=== PATIENT | female | born 1980 | race African-American/Black ===

== ENCOUNTER 2016-10-10 16:43 | Outpatient (CLI) | payer BC, MEDICAID ==
--- NOTE | 2016-10-10 17:27 | Non Stress Test Report ---
Non Stress Test Datetime Report Generated by CPN: 10/10/2016 17:26 DEMOGRAPHIC EGA NST: 33.0 INDICATION Indication for Study: Chronic Hypertension MONITORING Monitor Explained: Monitor Explained; Test Explained; Patient Verbalized Understanding Time on Monitor: 10/10/2016 16:54 Time off Monitor: 10/10/2016 17:16 NST Duration: 22 NST INTERVENTIONS NST Interventions: PO Hydration Physician Notified NST: C. Saucedo CNM BABY A: [id number] BABY A Movement : Present Contraction Frequency : 0 FHR Baseline : 140 Accelerations : 15X15 Decelerations : None Variability : Moderate 6-25bpm NST Review: Meets Criteria for Reactive NST NST Review and Verified By : PHUC Tyler Results: Reactive NST REPORT Report Trigger: Send Report
== END 2016-10-10 17:18 | disposition home or self-care (01) ==
LOC: LC 16:43
PROVIDERS: ATTEND Obstetrics & Gynecology
PROC: 4A1HXCZ Monitoring of Products of Conception, Cardiac Rate, External Approach (ICD-10-PCS; principal; 2016-10-10)
DX: Z34.93 Encounter for supervision of normal pregnancy, unspecified, third trimester (principal); Z3A.33 33 weeks gestation of pregnancy
CPT/HCPCS: 59025

== ENCOUNTER 2016-10-17 16:16 | Outpatient (CLI) | payer BC, MEDICAID ==
--- NOTE | 2016-10-17 16:53 | Non Stress Test Report ---
Non Stress Test Datetime Report Generated by CPN: 10/17/2016 16:53 DEMOGRAPHIC EGA NST: 34.0 INDICATION Indication for Study: Ordered by Provider Indication for Study (NST) Other: repeat MONITORING Monitor Explained: Monitor Explained; Test Explained; Patient Verbalized Understanding Time on Monitor: 10/17/2016 16:28 Time off Monitor: 10/17/2016 16:49 NST Duration: 21 NST INTERVENTIONS NST Interventions: PO Hydration Physician Notified NST: Dr. Astudillo BABY A: [id number] BABY A Movement : Present Contraction Frequency : none FHR Baseline : 140 Accelerations : 15X15 Decelerations : None Variability : Moderate 6-25bpm NST Review: Meets Criteria for Reactive NST NST Review and Verified By : PHUC Tyler Results: Reactive NST REPORT Report Trigger: Send Report
== END 2016-10-17 16:51 | disposition home or self-care (01) ==
LOC: LC 16:16
PROVIDERS: ATTEND Obstetrics & Gynecology
PROC: 4A1HXCZ Monitoring of Products of Conception, Cardiac Rate, External Approach (ICD-10-PCS; principal; 2016-10-17)
DX: O09.523 Supervision of elderly multigravida, third trimester (principal); Z3A.34 34 weeks gestation of pregnancy
CPT/HCPCS: 59025

== ENCOUNTER 2016-11-16 05:08 | Outpatient (CLI) | payer BC, MEDICAID ==
[2016-11-16] MEDS ORDERED: LABETALOL HCL 200 MG TABLET PO ONE (05:55)
[2016-11-16] MEDS ORDERED: LABETALOL HCL 200 MG TABLET ONE (05:58)
[2016-11-16 06:17] LABS: APPEARANCE,URINE CLEAR; BILIRUBIN,URINE NEGATIVE (NEGATIVE); GLUCOSE, URINE NEGATIVE (NEGATIVE); KETONES,URINE NEGATIVE (NEGATIVE); LEUKOCYTE ESTERASE,URINE NEGATIVE (NEGATIVE); NITRITE,URINE NEGATIVE (NEGATIVE); PROTEIN,URINE NEGATIVE (NEGATIVE); URINE SPECIFIC GRAVITY 1.011; UROBILINOGEN,URINE NEGATIVE mg/dL (<2.0)
[2016-11-16 06:38] LABS: URINE BARBITURATES SCREEN NEGATIVE; URINE METHADONE SCREEN NEGATIVE; URINE OPIATES LOW NEGATIVE; URINE PHENCYCLIDINE SCREEN NEGATIVE
[2016-11-16 07:09] LABS: ABSOLUTE EOSINOPHILS # (AUTO) 0.1 10^3/uL (0.0-0.6); ABSOLUTE LYMPHOCYTES (AUTO) 0.4 10^3/uL (0.5-4.7); ABSOLUTE MONOCYTES (AUTO) 0.5 10^3/uL (0.1-1.4); ABSOLUTE NEUT (AUTO) 6.7 10^3/uL (1.7-8.2); BASOPHILS % (AUTO) 0.4 % (0-2); EOSINOPHILS % (AUTO) 0.9 % (0-6); HEMATOCRIT 33.5 % (36.0-47.0); HEMOGLOBIN 11.1 g/dL (12.0-15.5); HGB HCT DIFFERENCE -0.2; LYMPHOCYTES % (AUTO) 5.5 % (13-45); MEAN CORPUSCULAR HEMOGLOBIN 26.5 pg (27.0-33.4); MEAN CORPUSCULAR HGB CONC 33.2 g/dL (32.0-36.0); MEAN CORPUSCULAR VOLUME 80 fl (80-97); MONOCYTES % (AUTO) 6.6 % (3-13); RED BLOOD COUNT 4.18 10^6/uL (3.72-5.28); RED CELL DISTRIBUTION WIDTH 14.1 % (11.5-14.0); SEGMENTED NEUTROPHILS % (AUTO) 86.6 % (42-78); WHITE BLOOD COUNT 7.7 10^3/uL (4.0-10.5)
[2016-11-16 07:16] LABS: ALANINE AMINOTRANSFERASE 36 U/L (9-52); ALBUMIN 3.7 g/dL (3.5-5.0); ALKALINE PHOSPHATASE 153 U/L (38-126); ANION GAP 10 (5-19); ASPARTATE AMINO TRANSFERASE 29 U/L (14-36); BILIRUBIN,TOTAL 0.6 mg/dL (0.2-1.3); BLOOD UREA NITROGEN 6 mg/dL (7-20); CALCIUM 9.2 mg/dL (8.4-10.2); CARBON DIOXIDE 23 mmol/L (22-30); CHLORIDE 102 mmol/L (98-107); CREATININE RESULT 0.67 mg/dL (0.52-1.25); GLUCOSE 72 mg/dL (75-110); LDH 406 U/L (313-618); POTASSIUM 4.5 mmol/L (3.6-5.0); SODIUM 134.6 mmol/L (137-145); TOTAL PROTEIN 6.8 g/dL (6.3-8.2); URIC ACID 4.8 mg/dL (2.5-7.0)
[2016-11-16] MEDS ORDERED: SIMETHICONE 80 MG TAB.CHEW PO ONE (07:25)
[2016-11-16] MEDS ORDERED: HYDROXYZINE PAMOATE 50 MG CAPSULE PO ONE (07:25)
[2016-11-16] MEDS ORDERED: HYDROXYZINE PAMOATE 50 MG CAPSULE ONE (07:29)
[2016-11-16] MEDS ORDERED: SIMETHICONE 80 MG TAB.CHEW ONE (07:29)
--- NOTE | 2016-11-16 10:46 | L&D Discharge Summary ---
OB Discharge Summary Datetime Report Generated by CPN: 11/16/2016 10:45 DISCHARGE DIAGNOSIS Diagnosis/Symptoms: False Labor Diagnoses/Symptoms Other: Reactive NST Gestation: 38.1 Number of Babies in Womb: 1 Parity: 2 DIET/ACTIVITY/RESTRICTIONS Diet: Regular Activity: Normal Activity TEACHING/INSTRUCTIONS/REFERRALS Instructions Given To: pt Instructions Understood: Patient Verbalized Understanding; Support Person Verbalized Understanding Referrals: None Educational Materials- Other: kick counts DISCHARGE INFORMATION Discharged AMA: No Discharge Date/Time: 11/16/2016 07:43 Discharged To: Home Discharge Provider Name: Paco Accompanied By: Discharge Method: Ambulatory Condition: Stable FOLLOW UP INFORMATION Follow Up With: [facility] Follow Up On: Tomorrow Follow Up Phone Number: [facility] - Comments: Pt ambulated off unit in stable condition with Mcgraws pitcher in hand. Instructed to drink 4-6 pitchers daily and to follow up at next appointment as scheduled. PT informed on signs and symptoms on when to return to hospital. No questions or concerns expressed by pt or SO at this time. GENERAL INSTR-CALL PROVIDER IF: Contractions: Regular painful contractions every 5 minutes or less for one hour. Time your contractions from the beginning of one to the beginning of the next Gush of Fluid/Blood: Gush of fluid or blood from your vagina (it is normal to have spotting after vaginal exam or intercourse) Decreased Movement: Your baby is not moving as much as usual- 4 movements in 1 hour after drinking and resting on side
--- NOTE | 2016-11-16 10:46 | L&D General Admission ---
General Admit Datetime Report Generated by CPN: 11/16/2016 10:45 INFORMATION Patient Age: 36 (10/10/2016 16:43:QS system process) EDC: 11/28/2016 00:00 (10/10/2016 16:48:Lauren Lopez RN) : 4 (10/10/2016 16:48:Lauren Lopez RN) Para: 2 (11/16/2016 07:39:Samanta Padron RN) Para: 2 (10/17/2016 16:43:Ness Valdez RN) Para: 2 (10/10/2016 17:20:Lauren Lopez RN) Para: 2 (10/10/2016 16:48:Lauren Lopez RN) Term: 2 (10/10/2016 16:48:Ness Valdez RN) : 0 (10/10/2016 16:48:Ness Valdez RN) Spontaneous Abortions: 0 (10/10/2016 16:48:Ness Valdez RN) Induced Abortions: 0 (10/10/2016 16:48:Ness Valdez RN) Livin (10/10/2016 16:48:Ness Valdez RN) Cesareans: 0 (10/10/2016 16:48:Ness Valdez RN) VBACs: 0 (10/10/2016 16:48:Ness Valdez RN) Ectopic: 0 (10/10/2016 16:48:Ness Valdez RN) Multiple Births: 0 (10/10/2016 16:48:Ness Valdez RN) Baby, Number in Womb: 1 (11/16/2016 07:39:Samanta Padron RN) Baby, Number in Womb: 1 (10/17/2016 16:43:Ness Valdez RN) Baby, Number in Womb: 1 (10/10/2016 17:20:Lauren Lopez RN) CARE Primary Special Education Director: [facility] (10/10/2016 16:48:Lauren Lopez RN) Height (in): 62 (11/16/2016 05:27:QS system process) Height (in): 62 (10/17/2016 17:02:QS system process) Height (in): 62 (10/10/2016 17:13:QS system process) Height (in): 62 (10/10/2016 17:00:QS system process) ALLERGIES Medication Allergy: No (10/10/2016 16:48:Ness Valdez RN) Medication Allergies: No Known Allergies (11/16/2016) (11/16/2016 05:27:QS system process) Medication Allergies: No Known Allergies (04/23/2015) (10/10/2016 16:43:QS system process) Latex Allergy: No Latex Allergies (10/10/2016 16:48:Ness Valdez RN) Food Allergies: denies (10/10/2016 16:48:Karla Treviño RN) Environmental Allergies: denies (10/10/2016 16:48:Karla Treviño RN) COMMUNICATION Primary Language: Northern Irish (10/10/2016 16:48:Ness Valdez RN) Medical Tx Preferred Language: Northern Irish (10/10/2016 16:48:Ness Valdez RN) Northern Irish Communication Ability: Speaks Northern Irish; Reads Northern Irish (10/10/2016 16:48:Karla Treviño RN) Communication Barrier(s): None (10/10/2016 16:48:Karla Treviño RN) DEMOGRAPHICS Address: [address] [place] [address] (10/10/2016 16:43:QS system process) Zipcode: [address] (10/10/2016 16:43:QS system process) Home (10/10/2016 16:43:QS system process) SSN: [id number] (10/10/2016 16:43:QS system process) Next of Kin Name: BILL MCFADDEN (10/10/2016 16:43:QS system process) Next of Kin (10/10/2016 16:43:QS system process) Next of Kin Relationship: MO (10/10/2016 16:43:QS system process) Date of : 1980 (10/10/2016 16:43:QS system process) Marital Status: (10/10/2016 16:43:QS system process) Sex: Female (10/10/2016 16:43:QS system process) Race: (10/10/2016 16:43:QS system process) Ethnicity: Non- or (10/10/2016 16:43:QS system process) Pentecostalism: Other (10/10/2016 16:43:QS system process) DRUG AND ALCOHOL USE Alcohol: No (10/10/2016 16:48:Ness Valdez RN) Cigarettes: Never Smoker. [id number] (10/10/2016 16:48:Ness Valdez RN) Marijuana: No (10/10/2016 16:48:Ness Valdez RN) Cocaine: No (10/10/2016 16:48:Ness Valdez RN) Other Illicit Drugs: No (10/10/2016 16:48:Ness Valdez RN) VACCINE HISTORY Influenza Vaccine: No (10/10/2016 16:48:Ness Valdez RN) Pneumococcal Vaccine: No (10/10/2016 16:48:Ness Valdez RN) Tetanus Vaccine: Yes (10/10/2016 16:48:Ness Valdez RN) Tetanus Date: 09/11 (10/10/2016 16:48:Ness Valdez RN) Tdap Vaccine: Yes (10/10/2016 16:48:Ness Valdez RN) Tdap Date: 09/11 (10/10/2016 16:48:Ness Valdez RN) Hepatitis B Vaccine: Yes (10/10/2016 16:48:Ness Valdez RN) Kitchen Helper: [facility] (10/10/2016 16:48:Karla Treviño RN) Feeding Preference: Both (10/10/2016 16:48:Karla Treviño RN) Benefit of Breast Feed Discussed: Yes (10/10/2016 16:48:Karla Treviño RN) Circumcision: N/A (10/10/2016 16:48:Karla Treviño RN) Classes Attended: No (10/10/2016 16:48:Karla Treviño RN) Tubal Ligation: No (10/10/2016 16:48:Karla Treviño RN) Tubal Authorization Signed: N/A (10/10/2016 16:48:Karla Treviño RN) Consent: N/A (10/10/2016 16:48:Karla Treviño RN) Consent Signed: N/A (10/10/2016 16:48:Karla Treviño RN) Pain Management Plans: Natural (10/10/2016 16:48:Karla Treviño RN) Plans for Labor and Delivery: None (10/10/2016 16:48:Karla Treviño RN) Support Person: Salty (10/10/2016 16:48:Karla Treviño RN) Support Person Relationship: (10/10/2016 16:48:Karla Treviño RN) Cultural/Spritual Practice: No (10/10/2016 16:48:Karla Treviño RN) Spir/Cult Dietary Needs: No (10/10/2016 16:48:Karla Treviño RN) LIVING SITUATION/DISCHARGE PLAN Living Arrangements: House (10/10/2016 16:48:Karla Treviño RN) Adequate Access to:: Electric; Heat; Refrigeration; Plumbing/Running water; Phone; Transportation (10/10/2016 16:48:Karla Treviño RN) WIC Program: Yes (10/10/2016 16:48:Karla Treviño RN) Discharge Tissue Technologist Person: Salty (10/10/2016 16:48:Karla Treviño RN) Person to Help after Discharge: Salty (10/10/2016 16:48:Karla Treviño RN) Currently Using Commun Resources: Yes (10/10/2016 16:48:Karla Treviño RN) Specify Current Resource Used: medicaid (10/10/2016 16:48:Karla Treviño RN) Outside Agency/Oral Hygienist: No (10/10/2016 16:48:Karla Treviño RN) Car Seat for Discharge: Yes (10/10/2016 16:48:Karla Treviño RN) Adoption Requested: No (10/10/2016 16:48:Karla Treviño RN) Pt Contact w/infant Post : N/A (10/10/2016 16:48:Karla Treviño RN) LABS Blood Type: B Positive (10/10/2016 16:48:Lauren Lopez RN) Antibody Screen: neg (10/10/2016 16:48:Lauren Lopez RN) Hemoglobin: 11.1 L (11/16/2016 06:38:QS system process) Hematocrit: 33.5 L (11/16/2016 06:38:QS system process) MCV: 80 (11/16/2016 06:38:QS system process) Group Beta Strep: positive (10/10/2016 16:48:Karla Treviño RN) Gonorrhea: Negative (10/10/2016 16:48:Ness Valdez RN) Chlamydia: Negative (10/10/2016 16:48:Ness Valdez RN) RPR/VDRL: Nonreactive (10/10/2016 16:48:Lauren Lopez RN) Hepatitis B: Negative (10/10/2016 16:48:Lauren Lopez RN) Rubella: Immune (10/10/2016 16:48:Lauren Lopez RN) OB/PREVIOUS HISTORY Previous Procedures: Ultrasound; NST (10/10/2016 16:48:Karla Treviño RN) Current Procedures: Ultrasound; NST (10/10/2016 16:48:Karla Treviño RN) History of Previous : No (10/10/2016 16:48:Karla Treviño RN) History of Gestational Diabetes: No (10/10/2016 16:48:Karla Treviño RN) History of PIH: No (10/10/2016 16:48:Karla Treviño RN) History of Incompetent Cervix: No (10/10/2016 16:48:Karla Treviño RN) History of Placenta Previa/Abrup: No (10/10/2016 16:48:Karla Treviño RN) History of Macrosomia: No (10/10/2016 16:48:Karla Treviño RN) History of IUGR: No (10/10/2016 16:48:Karla Treviño RN) History of Hemorrhage: No (10/10/2016 16:48:Karla Treviño RN) History of Loss/Stillborn: No (10/10/2016 16:48:Karla Treviño RN) History of : No (10/10/2016 16:48:Karla Treviño RN) History of D (Rh) Sensitization: No (10/10/2016 16:48:Karla Treviño RN) History Recurrent Loss/Stillborn: No (10/10/2016 16:48:Karla Treviño RN) History Depression/PP Depression: No (10/10/2016 16:48:Karla Treviño RN) History of Uterine Anomaly/VIDA: No (10/10/2016 16:48:Karla Treviño RN) History of Infertility: No (10/10/2016 16:48:Karla Treviño RN) History of ART Treatment: No (10/10/2016 16:48:Karla Treviño RN) History of VIDA: No (10/10/2016 16:48:Karla Treviño RN) Comments Obstetrical History: g1-1996, 40 weeks, vaginal delivery, female, 6lb 8 oz, no epidural, @ [facility] g2-2000, 40 weeks, vaginal delivery, male, 6lb 13oz, no epidural, @ [employer] g3-2005, 10 weeks, EAB g4- current , CHTN on labetalol, Obesity, AMA, anemia, uterine fibroid (10/10/2016 16:48:Karla Treviño RN) MEDICAL HISTORY Med Hx Diabetes: No (10/10/2016 16:48:Karla Treviño RN) Med Hx Hypertension: Yes (10/10/2016 16:48:Karla Treviño RN) Med Hx Heart Disease: No (10/10/2016 16:48:Karla Treviño RN) Med Hx Autoimmune Disorder: No (10/10/2016 16:48:Karla Treviño RN) Med Hx Kidney Disease/UTI: No (10/10/2016 16:48:Karla Treviño RN) Med Hx Neurologic/Epilepsy: No (10/10/2016 16:48:Karla Treviño RN) Med Hx Psychiatric Disorders: No (10/10/2016 16:48:Karla Treviño RN) Med Hx Hepatitis/Liver Disease: No (10/10/2016 16:48:Karla Treviño RN) Med Hx Varicosities/Phlebitis: No (10/10/2016 16:48:Karla Treviño RN) Med Hx Thyroid Dysfunction: No (10/10/2016 16:48:Karla Treviño RN) Med Hx Trauma/Violence: No (10/10/2016 16:48:Karla Treviño RN) Med Hx Blood Transfusion: No (10/10/2016 16:48:Karla Treviño RN) Med Hx Pulmonary (Asthma,TB): No (10/10/2016 16:48:Karla Treviño RN) Med Hx Breast: No (10/10/2016 16:48:Karla Treviño RN) Med Hx SENIOR DIRECTOR INSIGHT Surgery: No (10/10/2016 16:48:Karla Treviño RN) Med Hx Hospitalization/Surgery: Yes (10/10/2016 16:48:Karla Treviño RN) Med Hx Anesthetic Complications: No (10/10/2016 16:48:Karla Treviño RN) Med Hx Abnormal Pap Smear: No (10/10/2016 16:48:Karla Treviño RN) Other Medical Diseases: No (10/10/2016 16:48:Karla Treviño RN) Med Hx Significant Family Hx: No (10/10/2016 16:48:Karla Treviño RN) Details of Med/Surg Hx: x2, CHTN on labetalol, anemia, obesity, AMA, uterine fibroid on left side 5.6x4.95x5.1 as of april, tonsilectomy (10/10/2016 16:48:Karla Treviño RN) INFECTIOUS HISTORY Inf Hx Gonorrhea: No (10/10/2016 16:48:Karla Treviño RN) Inf Hx Chlamydia: No (10/10/2016 16:48:aKrla Treviño RN) Inf Hx Syphilis: No (10/10/2016 16:48:Karla Treviño RN) Inf Hx HIV/AIDS: No (10/10/2016 16:48:Karla Treviño RN) Inf Hx Human Papilloma Virus: No (10/10/2016 16:48:Karla Treviño RN) Inf Hx Pt/Partner Genital Herpes: No (10/10/2016 16:48:Karla Treviño RN) Inf Hx Tuberculosis/Exposure: No (10/10/2016 16:48:Karla Treviño RN) Inf Hx Hepatitis B,C: No (10/10/2016 16:48:Karla Treviño RN) Inf Hx Rash or Viral Illness: No (10/10/2016 16:48:Karla Treviño RN) GENETIC HISTORY Gen Hx Age >=35 at [place]: Yes (10/10/2016 16:48:Karla Treviño RN) Gen Hx Thalassemia: No (10/10/2016 16:48:Karla Treviño RN) Gen Hx Congenital Heart Defect: No (10/10/2016 16:48:Karla Treviño RN) Gen Hx Neural Tube Defect: No (10/10/2016 16:48:Karla Treviño RN) Gen Hx Down's Syndrome: No (10/10/2016 16:48:Karla Treviño RN) Gen Hx Navi-Sachs: No (10/10/2016 16:48:Karla Treviño RN) Gen Hx Linda: No (10/10/2016 16:48:Karla Treviño RN) Gen Hx Familial Dysautonomia: No (10/10/2016 16:48:Karla Treviño RN) Gen Hx Sickle Cell Disease/Trait: No (10/10/2016 16:48:Karla Treviño RN) Gen Hx Hemophilia/Blood Disorder: No (10/10/2016 16:48:Karla Treviño RN) Gen Hx Muscular Dystrophy: No (10/10/2016 16:48:Karla Treviño RN) Gen Hx Cystic Fibrosis: No (10/10/2016 16:48:Karla Treviño RN) Gen Hx Huntingtons Chorea: No (10/10/2016 16:48:Karla Treviño RN) Gen Hx Mental Retardation/Autism: No (10/10/2016 16:48:Karla Treviño RN) Gen Hx Tested for Fragile X: No (10/10/2016 16:48:Karla Treviño RN) Gen Hx Other Inher/Chromosomal: No (10/10/2016 16:48:Karla Treviño RN) Gen Hx Maternal Metabolic DO: No (10/10/2016 16:48:Karla Treviño RN) Gen Hx Pt Father or FOB Defect: No (10/10/2016 16:48:Karla Treviño RN) Gen Hx Other Genetic History: No (10/10/2016 16:48:Karla Treviño RN) Gen Hx Drugs/Meds since LMP: No (10/10/2016 16:48:Karla Treviño RN) Gen Hx Medications: vitamins, Labetalol, Iron, Benadryl, Zantac, Tylenol (10/10/2016 16:48:Karla Treviño RN)
--- NOTE | 2016-11-16 10:46 | Antepartum Discharge Summary ---
Antepartum DC Datetime Report Generated by CPN: 11/16/2016 10:45 DIET/ACTIVITY/RESTRICTIONS Diet: Regular (11/16/2016 07:39:Samanta Vito, RN) Activity: Normal Activity (11/16/2016 07:39:Samanta Vito, RN) TEACHING/INSTRUCTIONS/REFERRALS Instructions Given To: pt (11/16/2016 07:39:Samanta Padron, RN) Instructions Understood: Patient Verbalized Understanding; Support Person Verbalized Understanding (11/16/2016 07:39:Samanta Padron RN) Referrals: None (11/16/2016 07:39:Samanta Padron RN) DISCHARGE INFORMATION Discharged AMA: No (11/16/2016 07:39:Samanta Padron RN) Discharge Date/Time: 11/16/2016 07:43 (11/16/2016 07:39:Samanta Padron RN) Discharged To: Home (11/16/2016 07:39:Samanta Padron RN) Discharge Provider Name: Dr Antonio (11/16/2016 07:39:Samanta Padron RN) Accompanied By: (11/16/2016 07:39:Samanta Padron RN) Discharge Method: Ambulatory (11/16/2016 07:39:Samanta Padron RN) Condition: Stable (11/16/2016 07:39:Samanta Padron RN) FOLLOW UP INFORMATION Follow Up With: [facility] (11/16/2016 07:39:Samanta Pardon RN) Follow Up On: Tomorrow (11/16/2016 07:39:Samanta Padron RN) Follow Up Phone Number: [facility] - (11/16/2016 07:39:Samanta Padron RN) GENERAL INSTR-CALL PROVIDER IF: Contractions: Regular painful contractions every 5 minutes or less for one hour. Time your contractions from the beginning of one to the beginning of the next (11/16/2016 07:39:Samanta Padron RN) Gush of Fluid/Blood: Gush of fluid or blood from your vagina (it is normal to have spotting after vaginal exam or intercourse) (11/16/2016 07:39:Samanta Padron RN) Decreased Movement: Your baby is not moving as much as usual- 4 movements in 1 hour after drinking and resting on side (11/16/2016 07:39:Samanta Padron RN)
--- NOTE | 2016-11-16 10:46 | L&D Admission Assessment ---
LD ADM ASMT Datetime Report Generated by CPN: 11/16/2016 10:45 PATIENT ASSESSMENT Assessment Type: Triage (11/16/2016 05:39:Karla Treviño, RN) WEIGHT Weight (lb): 207 (11/16/2016 05:27:QS system process) Weight (kg): 94.1 (11/16/2016 05:27:QS system process) BMI: 37.9 (11/16/2016 05:27:QS system process) PAIN Pain Scale: 4 (11/16/2016 05:36:Karla Treviño RN) Pain Presence: Constant (11/16/2016 05:36:Karla Treviño RN) Pain Type: Pressure (11/16/2016 05:36:Karla Treviño RN) Pain Location: Abdomen; Back (11/16/2016 05:36:Karla Treviño RN) CONTRACTIONS Frequency (min): 2-4 (11/16/2016 07:30:Samanta Padron RN) Frequency (min): x2 (11/16/2016 07:00:Karla Treviño RN) Frequency (min): none (11/16/2016 06:30:Karla Treviño RN) Frequency (min): x1 (11/16/2016 06:00:Karla Treviño RN) Frequency (min): constant (11/16/2016 05:39:Karla Treviño RN) Duration (sec): 40-70 (11/16/2016 07:30:Samanta Padron RN) Duration (sec): 30-40 (11/16/2016 07:00:Karla Treviño RN) Duration (sec): 40 (11/16/2016 06:00:Karla Treviño RN) Quality: Mild (11/16/2016 07:30:Samanta Padron RN) Quality: Mild (11/16/2016 07:00:Karla Treviño RN) Quality: Mild (11/16/2016 06:00:Karla Treviño RN) Pattern: Normal: <= 5 Contractions in 10 Minutes (11/16/2016 07:30:Samanta Padron RN) Resting Tone [place]: Relaxed (11/16/2016 07:30:Samanta Padron RN) Resting Tone [place]: Relaxed (11/16/2016 07:00:Karla Treviño RN) Resting Tone [place]: Relaxed (11/16/2016 06:30:Karla Treviño RN) Resting Tone [place]: Relaxed (11/16/2016 06:00:Karla Treviño RN) VAGINAL EXAM Dilatation (cm): fingertip (11/16/2016 07:00:Karla Treviño RN) Dilatation (cm): fingertip (11/16/2016 05:44:Karla Treviño RN) Effacement (%): thick (11/16/2016 07:00:Karla Treviño RN) Effacement (%): thick (11/16/2016 05:44:Karla Treviño RN) Station: -3 (11/16/2016 07:00:Karla Treviño RN) Station: -3 (11/16/2016 05:44:Karla Treviño RN) NEURO Level of Consciousness: Fully Conscious (11/16/2016 05:39:Karla Treviño RN) DTR's/Clonus: DTRs 1+; No Clonus (11/16/2016 05:39:Karla Treviño RN) Headache: Generalized (11/16/2016 05:39:Karla Treviño RN) Dizziness: No (11/16/2016 05:39:Karla Treviño RN) Blurred Vision: No (11/16/2016 05:39:Karla Treviño RN) Extremity Numbness/Tingling : None (11/16/2016 05:39:Karla Treviño RN) Extremity Movement: Full Range of Motion (11/16/2016 05:39:Karla Treviño RN) CARDIOVASCULAR Heart Rhythm: Regular (Annotations: normal s1s2 on auscultation with no evidence of murmur ) (11/16/2016 05:39:Karla Treviño RN) Nailbeds: [place] (11/16/2016 05:39:Karla Treviño RN) Capillary Refill: Less than 3 Seconds (11/16/2016 05:39:Karla Treviño RN) Lower Extremities Edema: None (11/16/2016 05:39:Karla Treviño RN) Lower Extremities Edema Degree: None (11/16/2016 05:39:Karla Treviño RN) Upper Extremities Edema: None (11/16/2016 05:39:Karla Treviño RN) Upper Extremities Edema Degree: None (11/16/2016 05:39:Karla Treviño RN) Facial Edema: None (11/16/2016 05:39:Karla Treviño RN) Kurt's Sign Left Leg: Negative (11/16/2016 05:39:Karla Treviño RN) Kurt's Sign Right Leg: Negative (11/16/2016 05:39:Karla Treviño RN) DVT RISK ASSESSMENT DVT Risk Age: Age less than 41 years (11/16/2016 05:39:Karla Treviño RN) RESPIRATORY Respiratory Effort: Unlabored; Regular Rhythm; Equal Expansion (11/16/2016 05:39:Karla Treviño RN) Breath Sounds, Left: Clear and Equal (11/16/2016 05:39:Karla Treviño RN) Breath Sounds, Right: Clear and Equal (11/16/2016 05:39:Karla Treviño RN) Cough Productivity: None (11/16/2016 05:39:Karla Treviño RN) GASTROINTESTINAL Nausea/Vomiting: Denies (11/16/2016 05:39:Karla Treviño RN) Bowel Sounds: Normoactive; All Quadrants (11/16/2016 05:39:Karla Treviño RN) RUQ Epigastric Pain: Denies (11/16/2016 05:39:Karla Treviño RN) Bowel Patterns: Soft, Formed Stool (11/16/2016 05:39:Karla Treviño RN) Hemorrhoids: None (11/16/2016 05:39:Karla Treviño RN) Diet Type: Regular diet (11/16/2016 05:39:Karla Treviño RN) Last Meal: 11/15/2016 18:00 (11/16/2016 05:39:Karla Treviño RN) GENITOURINARY Bladder: Nondistended (11/16/2016 05:39:Karla Treviño RN) Frequency of Urination: No (11/16/2016 05:39:Karla Treviño RN) Urination Burning: No (11/16/2016 05:39:Karla Treviño RN) CVA Tenderness: No (11/16/2016 05:39:Karla Treviño RN) Vaginal Bleeding: None (11/16/2016 05:39:Karla Treviño RN) Vaginal Discharge Amount: Small (11/16/2016 05:39:Karla Treviño RN) Vaginal Discharge Color: White (11/16/2016 05:39:Karla Treviño RN) Vaginal Discharge Odor: Non-Odorous (11/16/2016 05:39:Karla Treviño RN) Vaginal Discharge Character: None (11/16/2016 05:39:Karla Treviño RN) INTEGUMENTARY Skin Color: Normal for Race (11/16/2016 05:39:Karla Treviño RN) Skin Temperature: Warm (11/16/2016 05:39:Karla Treviño RN) Skin Moisture: Dry (11/16/2016 05:39:Karla Treviño RN) BRIA SKIN ASSESSMENT Bria Scale Sensory Perception: No Impairment- Responds to verbal commands. Has no sensory deficit which would limit ability to feel or voice pain or discomfort (11/16/2016 05:39:Karla Treviño RN) Bria Scale Moisture: Rarely Moist- Skin is usually dry. Linen only requires changing at routine intervals (11/16/2016 05:39:Karla Treviño RN) Bria Scale Activity: Walks Frequently- Walks outside the room at least twice a day and inside room at least every 2 hours during the day. (11/16/2016 05:39:Karla Treviño RN) Bria Scale Mobility: No Limitations- Makes major and frequent changes in position without assistance (11/16/2016 05:39:Karla Treviño RN) Bria Scale Nutrition: Excellent- Eats most of every meal. Never refuses a meal. Usually eats a total of 4 or more servings of meat and dairy products. Occasionally eats between meals. Does not require supplementation (11/16/2016 05:39:Karla Treviño RN) Bria Scale Friction and Shear: No Apparent Problem- Moves in bed and in chair independently and has sufficient muscle strength to lift up completely during move. Maintains good position in bed or chair at all times (11/16/2016 05:39:Karla Treviño RN) Bria Scale Total: 23 (11/16/2016 05:39:QS system process) Bria Scale Risk: No Risk of Pressure Ulcer Noted at this Time (11/16/2016 05:39:QS system process) SUPPORT Family Support: Significant Other supportive, at bedside frequently (11/16/2016 05:39:Karla Treviño RN) Emotional State: Calm/Relaxed (11/16/2016 05:39:Karla Treviño RN) SAFETY Call [place] Within Reach: Yes (11/16/2016 05:39:Karla Treviño RN) Side Rails Up: Yes (11/16/2016 05:39:Karla Treviño RN) Bed Wheels Locked: Yes (11/16/2016 05:39:Karla Treviño RN) Arm Bands Present: Yes (11/16/2016 05:39:Karla Treviño RN) Isolation: [place] (11/16/2016 05:39:Karla Treviño RN) FALL SCREEN Fall Risk History of Falling: (0) No (11/16/2016 05:39:Karla Treviño RN) Fall Risk Secondary Diagnosis: (0) No (11/16/2016 05:39:Karla Treviño RN) Fall Risk Ambulatory Aid: (0) None/Bedrest/Wheelchair/Nurse Assist (11/16/2016 05:39:Karla Treviño RN) Fall Risk IV Therapy: (0) No (11/16/2016 05:39:Karla Treviño RN) Fall Risk Gait: (0) Normal/Bedrest/Immobile (11/16/2016 05:39:Karla Treviño RN) Fall Risk Mental Status: (0) Oriented to Own Ability (11/16/2016 05:39:Karla Treviño RN) Fall Risk Score: 0 (11/16/2016 05:39:QS system process) Fall Risk Score Definition: No Risk: No action required (11/16/2016 05:39:QS system process) RECENT TRAVEL/INFECTIOUS DISEASE Recent Exp Communicable Disease: around someone who has stomach virus (11/16/2016 05:39:Karla Treviño RN) Cough or Fever: No (11/16/2016 05:39:Karla Treviño RN) Foreign Travel Past 10 Days: No (11/16/2016 05:39:Karla Treviño RN) Open Wounds or Sores: No (11/16/2016 05:39:Karla Treviño RN) Prior Antibiotic Resistance Tx: No (11/16/2016 05:39:Karla Treviño RN) Cultures Obtained: Not Applicable (11/16/2016 05:39:Karla Treviño RN) Isolation Initiated: No (11/16/2016 05:39:Karla Treviño RN) Pt/Family Education: Handwashing Hygiene (11/16/2016 05:39:Karla Treviño RN) BABY A FHR Baseline Rate (bpm) Baby A: 150 (11/16/2016 07:30:Samanta Padron RN) FHR Baseline Rate (bpm) Baby A: 155 (11/16/2016 07:00:Karla Treviño RN) FHR Baseline Rate (bpm) Baby A: 155 (11/16/2016 06:30:Karla Treviño RN) FHR Baseline Rate (bpm) Baby A: 155 (11/16/2016 06:00:Karla Treviño RN) Variability Baby A: Moderate 6-25 bpm (11/16/2016 07:30:Samanta Padron RN) Variability Baby A: Moderate 6-25 bpm (11/16/2016 07:00:Karla Treviño RN) Variability Baby A: Moderate 6-25 bpm (11/16/2016 06:30:Karla Treviño RN) Variability Baby A: Moderate 6-25 bpm (11/16/2016 06:00:Karla Treviño RN) Accelerations Baby A: 15X15 (11/16/2016 07:30:Samanta Padron RN) Accelerations Baby A: 15X15 (11/16/2016 07:00:Karla Treviño RN) Accelerations Baby A: 15X15 (11/16/2016 06:30:Karla Treviño RN) Accelerations Baby A: 15X15 (11/16/2016 06:00:Karla Treviño RN) Decelerations Baby A: None (11/16/2016 07:30:Samanta Padron RN) Decelerations Baby A: None (11/16/2016 07:00:Karla Treviño RN) Decelerations Baby A: None (11/16/2016 06:30:Karla Treviño RN) Decelerations Baby A: None (11/16/2016 06:00:Karla Treviño RN)
--- NOTE | 2016-11-16 10:46 | L&D Flow Sheet ---
LD Flowsheet Datetime Report Generated by CPN: 11/16/2016 10:45 Datetime: 11/16/2016 07:30 Uterine Activity Monitor Mode: External; Palpation (Samanta Padron RN) Frequency (min): 2-4 (Samanta Padron RN) Quality: Mild (Samanta Padron RN) Duration (sec): 40-70 (Samanta Padron RN) Duration Criteria: Less than Two 120 Second Contractions (Samanta Padron RN) Pattern: Normal: <= 5 Contractions in 10 Minutes (Samanta Baidy, RN) Resting Tone (Palpate): Relaxed (Samanta Baidy, RN) Assessment A Monitor Mode: External US (Samanta Baidy, RN) FHR Baseline Rate : 150 (Samanta Baidy, RN) Variability: Moderate 6-25 bpm (Samanta Baidy, RN) Accelerations: 15X15 (Samanta Baidy, RN) Decelerations: None (Samanta Baidy, RN) Datetime: 11/16/2016 07:27 NBP Sys/[place]awn[place]/Mean (mmHg): 135 (QS system process) : 77 (QS system process) : 101 (QS system process) Pulse: 100 (QS system process) LaborFlag: Labor (QS system process) Datetime: 11/16/2016 07:22 Communication Notification Reason: Status Update; Labor Status; Membrane Status; Pain; Lab/Diagnostic Study (Samanta Padron RN) Communication Comments: Dr Antonio notified of lab reports and orders received for simethicon and vistaril with d/c home. (Samanta Padron RN) Datetime: 11/16/2016 07:18 NBP Sys/[place]/Mean (mmHg): 135 (QS system process) : 80 (QS system process) : 102 (QS system process) Pulse: 101 (QS system process) LaborFlag: Labor (QS system process) Datetime: 11/16/2016 07:09 Monitor Interventions for UA: [place] Adjusted (Samanta Baidy, RN) Datetime: 11/16/2016 07:07 NBP Sys/[place]/Mean (mmHg): 142 (QS system process) : 78 (QS system process) : 104 (QS system process) Pulse: 100 (QS system process) LaborFlag: Labor (QS system process) Datetime: 11/16/2016 07:06 Communication Comments: Report to oncoming shift, care relinquished to RN Baidy. (Karla Kossmann, RN) Datetime: 11/16/2016 07:00 Uterine Activity Monitor Mode: External; Palpation (Karlaovi Olsonann, RN) Frequency (min): x2 (Karla Kossmann, RN) Quality: Mild (Karla Sebsmann, RN) Duration (sec): 30-40 (Karla Kossmashkan, RN) Resting Tone (Palpate): Relaxed (Karla Sebsmann, RN) Assessment A Monitor Mode: External US (Karla Treviño, RN) FHR Baseline Rate : 155 (Karla Treviño, RN) Variability: Moderate 6-25 bpm (Karlaovi Treviño, RN) Accelerations: 15X15 (Karla Treviño, RN) Decelerations: None (Karla Treviño, RN) Vaginal Exam Dilatation (cm): fingertip (Karla Treviño, RN) Effacement (%): thick (Karla Treviño, RN) Station: -3 (Karla Treviño, ) Exam by: PHUC Kamila (Karla Olsonashkan, ) Datetime: 11/16/2016 06:57 NBP Sys/[place]/Mean (mmHg): 146 (QS system process) : 83 (QS system process) : 108 (QS system process) Pulse: 100 (QS system process) LaborFlag: Labor (QS system process) Datetime: 11/16/2016 06:47 NBP Sys/[place]/Mean (mmHg): 146 (QS system process) : 78 (QS system process) : 107 (QS system process) Pulse: 106 (QS system process) LaborFlag: Labor (QS system process) Datetime: 11/16/2016 06:39 I/O Interventions: Up to BR (Karla Kossmann, RN) Datetime: 11/16/2016 06:37 NBP Sys/[place]/Mean (mmHg): 139 (QS system process) : 69 (QS system process) : 98 (QS system process) Pulse: 105 (QS system process) LaborFlag: Labor (QS system process) Datetime: 11/16/2016 06:33 Monitor Interventions for UA: [place] Adjusted (Karla Treviño, RN) Datetime: 11/16/2016 06:30 Uterine Activity Monitor Mode: External; Palpation (Karla Treviño, RN) Frequency (min): none (Karla Treviño, RN) Resting Tone (Palpate): Relaxed (Karla Treviño, RN) Assessment A Monitor Mode: External US (Karla Sebsmann, RN) FHR Baseline Rate : 155 (Karla Kossmann, RN) Variability: Moderate 6-25 bpm (Karla Kossmann, RN) Accelerations: 15X15 (Karla Kossmann, RN) Decelerations: None (Karla Kossmann, RN) Datetime: 11/16/2016 06:27 NBP Sys/[place]/Mean (mmHg): 141 (QS system process) : 74 (QS system process) : 101 (QS system process) Pulse: 101 (QS system process) LaborFlag: Labor (QS system process) Datetime: 11/16/2016 06:18 NBP Sys/[place]/Mean (mmHg): 140 (QS system process) : 67 (QS system process) : 97 (QS system process) Pulse: 102 (QS system process) LaborFlag: Labor (QS system process) Datetime: 11/16/2016 06:08 NBP Sys/[place]/Mean (mmHg): 149 (QS system process) : 73 (QS system process) : 104 (QS system process) Pulse: 101 (QS system process) LaborFlag: Labor (QS system process) Datetime: 11/16/2016 06:02 Medications Magnesium/Antihypertensives: Labetolol PO (mg) @ (Annotations: 200mg po given ) (Karla Treviño, RN) Datetime: 11/16/2016 06:00 Uterine Activity Monitor Mode: External; Palpation (Karla Treviño, ) Frequency (min): x1 (Karla Treviño, PHUC) Quality: Mild (Karla Treviño, PHUC) Duration (sec): 40 (Karla Treviño, PHUC) Resting Tone (Palpate): Relaxed (Karla Treviño, RN) Assessment A Monitor Mode: External US (Karla Treviño, RN) FHR Baseline Rate : 155 (Karla Treviño, RN) Variability: Moderate 6-25 bpm (Karla Sebsmann, RN) Accelerations: 15X15 (Karla Sebsmann, RN) Decelerations: None (Karla Kossmann, RN) Datetime: 11/16/2016 05:58 NBP Sys/[place]/Mean (mmHg): 146 (QS system process) : 105 (QS system process) : 120 (QS system process) Pulse: 110 (QS system process) LaborFlag: Labor (QS system process) Datetime: 11/16/2016 05:55 Monitor Interventions for UA: [place] Adjusted (Karla Treviño, RN) Monitor Interventions for FHR: Ultrasound Adjusted (Karla Treviño, RN) Datetime: 11/16/2016 05:54 Patient Care Patient Position/Activity: Right Lateral (Karlaovi Treviño, RN) Datetime: 11/16/2016 05:52 Communication Comments: Dr. Neilsen at bedside and evaluation performed. Plans to monitor and recheck sve at 0650, perform PIH labs, and give labetalol dose. (Karla Treviño, RN) Datetime: 11/16/2016 05:47 NBP Sys/[place]/Mean (mmHg): 133 (QS system process) : 84 (QS system process) : 103 (QS system process) Pulse: 106 (QS system process) LaborFlag: Labor (QS system process) Datetime: 11/16/2016 05:44 Vaginal Exam Dilatation (cm): fingertip (Karla Treviño RN) Effacement (%): thick (Karla Treviño RN) Station: -3 (Karla Treviño RN) Exam by: PHUC Treviño (Karla Treviño RN) Cervix, Consistency: Moderate (Karla Treviño RN) Cervix, Position: Posterior (Karla Treviño RN) Datetime: 11/16/2016 05:43 NBP Sys/[place]/Mean (mmHg): 134 (QS system process) : 86 (QS system process) : 105 (QS system process) Pulse: 107 (QS system process) LaborFlag: Labor (QS system process) Datetime: 11/16/2016 05:39 Frequency (min): constant (Karla Kamila, RN) Vaginal Bleeding: None (Karla Treviño, RN) Maternal Assessment Level of Consciousness: Fully Conscious (Karla Treviño, RN) DTR's/Clonus: DTRs 1+; No Clonus (Karla Treviño RN) Headache: Generalized (Karla Treviño RN) Breath Sounds, Left: Clear and Equal (Karla Treviño RN) Breath Sounds, Right: Clear and Equal (Karla Treviño RN) Nausea/Vomiting: Denies (Karla Treviño RN) RUQ Epigastric Pain: Denies (Karla Treviño RN) Datetime: 11/16/2016 05:36 Vital Signs Stage of : Labor (Karla Treviño RN) NBP Sys/[place]/Mean (mmHg): 140 (QS system process) : 82 (QS system process) : 106 (QS system process) Pulse: 108 (QS system process) Respirations: 18 (Karla Treviño RN) Temperature (F): 98.8 (Karla Treviño RN) Temperature (C): 37.1 (QS system process) Pain Pain Scale: 4 (Karla Treviño RN) Pain Presence: Constant (Karla Treviño RN) Pain Type: Pressure (DAVID Murdock Pain Location: Abdomen; Back (Karla Treviño RN) Pain Relief Measures: Comfort Measures (DAVID Murdock Pain Coping: Talking Through Contractions; Breathing Through Contractions (Annotations: patient appears to be in obvious pain in position on her side ) (Karla Treviño RN) LaborFlag: Labor (QS system process) Datetime: 11/16/2016 05:33 Patient Care Patient Position/Activity: Left Lateral (Karla Treviño RN)
--- NOTE | 2016-11-16 10:46 | L&D Current Admission ---
Current Admit Datetime Report Generated by CPN: 11/16/2016 10:45 ADMISSION INFORMATION Chief Complaint: constant abdominal and back pain (11/16/2016 05:39:Karla Treviño RN)
== END 2016-11-16 07:43 | disposition home or self-care (01) ==
LOC: LC 05:08
PROVIDERS: ATTEND Specialist
PROC: 4A1HXCZ Monitoring of Products of Conception, Cardiac Rate, External Approach (ICD-10-PCS; principal; 2016-11-16)
DX: O47.1 False labor at or after 37 completed weeks of gestation (principal); O09.523 Supervision of elderly multigravida, third trimester; Z3A.38 38 weeks gestation of pregnancy
CPT/HCPCS: 36415; 80053; 80307; 81005; 83615; 84550; 85025; 86592; 86850; 86900; 86901

== ENCOUNTER → 2016-11-17 | Outpatient (CLI) | payer BC, MEDICAID | LOC: OD 11:32 | PROVIDERS: ATTEND Midwife | DX: G03.9 Meningitis, unspecified (principal) | CPT/HCPCS: 87070; 87880 ==

== ENCOUNTER 2016-11-20 09:30 | Inpatient (IN) | payer BC, MEDICAID ==
--- NOTE | 2016-11-20 10:01 | L&D Flow Sheet ---
LD Flowsheet Datetime Report Generated by CPN: 11/20/2016 10:00 Datetime: 11/20/2016 09:52 NBP Sys/[place]/Mean (mmHg): 150 (QS system process) : 104 (QS system process) : 123 (QS system process) Pulse: 63 (QS system process) LaborFlag: Labor (QS system process) Datetime: 11/20/2016 09:51 NBP Sys/[place]/Mean (mmHg): 164 (QS system process) : 102 (QS system process) : 123 (QS system process) Pulse: 80 (QS system process) LaborFlag: Labor (QS system process)
[2016-11-20] MEDS ORDERED: RINGERS SOLUTION,LACTATED 1,000 ML IV PRN (10:25)
[2016-11-20] MEDS ORDERED: PENICILLIN G POTASSIUM 5,000,000 UNIT in DEXTROSE 5%-WATER 100 ML IV ONE (10:25)
[2016-11-20 10:26] LABS: APPEARANCE,URINE SLIGHTLY-CLOUDY; BILIRUBIN,URINE NEGATIVE (NEGATIVE); GLUCOSE, URINE NEGATIVE (NEGATIVE); KETONES,URINE NEGATIVE (NEGATIVE); LEUKOCYTE ESTERASE,URINE NEGATIVE (NEGATIVE); NITRITE,URINE NEGATIVE (NEGATIVE); PROTEIN,URINE NEGATIVE (NEGATIVE); URINE SPECIFIC GRAVITY 1.018; UROBILINOGEN,URINE NEGATIVE mg/dL (<2.0)
[2016-11-20] MEDS ORDERED: PENICILLIN G-K 5 MILLION UNIT VIAL ONE (10:32)
[2016-11-20 10:43] LABS: URINE BARBITURATES SCREEN NEGATIVE; URINE METHADONE SCREEN NEGATIVE; URINE OPIATES LOW NEGATIVE; URINE PHENCYCLIDINE SCREEN NEGATIVE
[2016-11-20] MEDS ORDERED: ONDANSETRON HCL INJ/PF 4 MG/2 ML SDV ONE (10:48)
[2016-11-20 11:03] LABS: ABSOLUTE EOSINOPHILS # (AUTO) 0.1 10^3/uL (0.0-0.6); ABSOLUTE LYMPHOCYTES (AUTO) 1.5 10^3/uL (0.5-4.7); ABSOLUTE MONOCYTES (AUTO) 0.4 10^3/uL (0.1-1.4); ABSOLUTE NEUT (AUTO) 1.9 10^3/uL (1.7-8.2); BASOPHILS % (AUTO) 0.4 % (0-2); EOSINOPHILS % (AUTO) 2.2 % (0-6); HEMATOCRIT 34.1 % (36.0-47.0); HEMOGLOBIN 11.4 g/dL (12.0-15.5); HGB HCT DIFFERENCE 0.1; LYMPHOCYTES % (AUTO) 39.4 % (13-45); MEAN CORPUSCULAR HEMOGLOBIN 26.7 pg (27.0-33.4); MEAN CORPUSCULAR HGB CONC 33.4 g/dL (32.0-36.0); MEAN CORPUSCULAR VOLUME 80 fl (80-97); RED BLOOD COUNT 4.28 10^6/uL (3.72-5.28); RED CELL DISTRIBUTION WIDTH 14.2 % (11.5-14.0); WHITE BLOOD COUNT 3.9 10^3/uL (4.0-10.5)
[2016-11-20] MEDS ORDERED: FENTANYL CITRATE INJ/PF 100 MCG/2 ML AMPUL ONE (11:13)
[2016-11-20 11:21] LABS: ALANINE AMINOTRANSFERASE 37 U/L (9-52); ALBUMIN 3.3 g/dL (3.5-5.0); ALKALINE PHOSPHATASE 168 U/L (38-126); ANION GAP 11 (5-19); ASPARTATE AMINO TRANSFERASE 24 U/L (14-36); BILIRUBIN,TOTAL 0.5 mg/dL (0.2-1.3); BLOOD UREA NITROGEN 9 mg/dL (7-20); CALCIUM 9.2 mg/dL (8.4-10.2); CARBON DIOXIDE 22 mmol/L (22-30); CHLORIDE 104 mmol/L (98-107); GLUCOSE 79 mg/dL (75-110); LDH 408 U/L (313-618); POTASSIUM 4.5 mmol/L (3.6-5.0); SODIUM 136.7 mmol/L (137-145); TOTAL PROTEIN 6.8 g/dL (6.3-8.2); URIC ACID 5.9 mg/dL (2.5-7.0)
[2016-11-20] MEDS ORDERED: MISOPROSTOL 0.2 MG TABLET ONE (11:54)
[2016-11-20] MEDS ORDERED: LIDOCAINE 1% INJ-PF (10 MG/ML) 30 ML SDV ONE (11:55)
[2016-11-20] MEDS ORDERED: OXYTOCIN/NORMAL SALINE 20 UNIT/1,000 ML RTUINJ ONE (11:55)
--- NOTE | 2016-11-20 12:01 | L&D Flow Sheet ---
LD Flowsheet Datetime Report Generated by CPN: 11/20/2016 12:00 Datetime: 11/20/2016 11:54 Dilatation (cm): 10.0 (Viviana Mojica, RN) Exam by: K Antonio CNM (Vivianayvonne Mojica, RN) Datetime: 11/20/2016 11:53 NBP Sys/Shawna/Mean (mmHg): 167 (QS system process) : 112 (QS system process) : 135 (QS system process) Pulse: 62 (QS system process) LaborFlag: Labor (QS system process) Datetime: 11/20/2016 11:37 NBP Sys/Shawna/Mean (mmHg): 165 (QS system process) : 114 (QS system process) : 135 (QS system process) Pulse: 73 (QS system process) Monitor Mode: External (Kirsten Bellavance, RNC) Frequency (min): 5-7 (Kirsten Bellavance, RNC) Quality: Mild (Kirsten Bellavance, RNC) Duration (sec): 50-70 (Kirsten Bellavance, RNC) Duration Criteria: Less than Two 120 Second Contractions (Kirsten Bellavance, RNC) Pattern: Normal: <= 5 Contractions in 10 Minutes (Kirsten Bellavance, RNC) Resting Tone (Palpate): Relaxed (Kirsten Bellavance, RNC) Monitor Mode: External US (Kirsten Bellavance, RNC) FHR Baseline Rate : 120 (Kirsten Bellavance, RNC) Variability: Moderate 6-25 bpm (Kirsten Bellavance, RNC) Accelerations: 15X15 (Kirsten Bellavance, RNC) Decelerations: None (Kirsten Bellavance, RNC) Pain Assessment Comments: resting with eyes closed (Kirsten Bellavance, RNC) LaborFlag: Labor (QS system process) Datetime: 11/20/2016 11:23 NBP Sys/Shawna/Mean (mmHg): 168 (QS system process) : 100 (QS system process) : 125 (QS system process) Pulse: 66 (QS system process) Respirations: 16 (Kirsten Bellavance, RNC) Pain Scale: 5 (Kirsten Bellavance, RNC) Pain Presence: Intermittent (Kirsten Bellavance, RNC) Pain Type: Cramping (Kirsten Bellavance, RNC) Pain Location: Abdomen (Kirsten Bellavance, RNC) Pain Goal: 2 (Kirsten Bellavance, RNC) Pain Relief Measures: Pain Medication Given (Kirsten Bellavance, RNC) Pain Coping: Breathing Through Contractions (Kirsten Bellavance, RNC) Pain Assessment Comments: fentanyl 100 mcg given (Kirsten Bellavance, RNC) Level of Consciousness: Fully Conscious (Kirsten Bellavance, RNC) DTR's/Clonus: DTRs 2+ (Kirsten Bellavance, RNC) Headache: Denies (Kirsten Bellavance, RNC) Breath Sounds, Left: Clear and Equal (Kirsten Bellavance, RNC) Breath Sounds, Right: Clear and Equal (Kirsten Bellavance, RNC) Nausea/Vomiting: Denies (Kirsten Bellavance, RNC) RUQ Epigastric Pain: Denies (Kirsten Bellavance, RNC) Analgesics/Sedatives: Fentanyl (mcg) @ (Annotations: 100 mcg iv) (Kirsten Bellavance, RNC) LaborFlag: Labor (QS system process) Datetime: 11/20/2016 11:18 NBP Sys/Shawna/Mean (mmHg): 151 (QS system process) : 99 (QS system process) : 117 (QS system process) Pulse: 62 (QS system process) Respirations: 16 (Kirsten Bellavance, RNC) Monitor Mode: External (Kirsten Bellavance, RNC) Frequency (min): 5-7 (Kirsten Bellavance, RNC) Quality: Mild (Kirsten Bellavance, RNC) Duration (sec): 50-70 (Kirsten Bellavance, RNC) Duration Criteria: Less than Two 120 Second Contractions (Kirsten Bellavance, RNC) Pattern: Normal: <= 5 Contractions in 10 Minutes (Kirsten Bellavance, RNC) Resting Tone (Palpate): Relaxed (Kirsten Bellavance, RNC) Monitor Mode: External US (Kirsten Bellavance, RNC) FHR Baseline Rate : 120 (Kirsten Bellavance, RNC) Variability: Moderate 6-25 bpm (Kirsten Bellavance, RNC) Accelerations: 15X15 (Kirsten Bellavance, RNC) Decelerations: None (Kirsten Bellavance, RNC) Dilatation (cm): 6.0 (Kirsten Bellavance, RNC) Effacement (%): 100 (Kirsten Bellavance, RNC) Station: -1 (Kirsten Bellavance, RNC) Exam by: Katharina Bellbrie RNC (Kirsten Bellavance, RNC) Membrane Status: Intact (Kirsten Bellavance, RNC) LaborFlag: Labor (QS system process) Datetime: 11/20/2016 11:00 I/O Interventions: Up to BR (Kirsten Bellavance, RNC) Datetime: 11/20/2016 10:52 NBP Sys/Shawna/Mean (mmHg): 176 (QS system process) : 111 (QS system process) : 137 (QS system process) Pulse: 68 (QS system process) Respirations: 16 (Kirsten Bellavance, RNC) Monitor Mode: External (Kirsten Bellavance, RNC) Frequency (min): 5-7 (Kirsten Bellavance, RNC) Quality: Mild (Kirsten Bellavance, RNC) Duration (sec): 50-70 (Kirsten Bellavance, RNC) Duration Criteria: Less than Two 120 Second Contractions (Kirsten Bellavance, RNC) Pattern: Normal: <= 5 Contractions in 10 Minutes (Kirsten Bellavance, RNC) Resting Tone (Palpate): Relaxed (Kirsten Bellavance, RNC) Monitor Mode: External US (Kirsten Bellavance, RNC) FHR Baseline Rate : 120 (Kirsten Bellavance, RNC) Variability: Moderate 6-25 bpm (Kirsten Bellavance, RNC) Accelerations: 15X15 (Kirsten Bellavance, RNC) Decelerations: None (Kirsten Bellavance, RNC) Antiemetics/Antacids: Zofran IV (mg) @ (Annotations: 4) (Kirsten Bellavance, RNC) LaborFlag: Labor (QS system process) Datetime: 11/20/2016 10:39 NBP Sys/Shawna/Mean (mmHg): 172 (QS system process) : 112 (QS system process) : 135 (QS system process) Pulse: 65 (QS system process) Respirations: 16 (Kirsten Bellavance, RNC) Monitor Mode: External (Kirsten Bellavance, RNC) Frequency (min): 6-7 (Kirsten Bellavance, RNC) Quality: Mild (Kirsten Bellavance, RNC) Duration (sec): 60-80 (Kirsten Bellavance, RNC) Duration Criteria: Less than Two 120 Second Contractions (Kirsten Bellavance, RNC) Pattern: Normal: <= 5 Contractions in 10 Minutes (Kirsten Bellavance, RNC) Resting Tone (Palpate): Relaxed (Kirsten Bellavance, RNC) Monitor Mode: External US (Kirsten Bellavance, RNC) FHR Baseline Rate : 120 (Kirsten Bellavance, RNC) Variability: Moderate 6-25 bpm (Kirsten Bellavance, RNC) Accelerations: 15X15 (Kristen Bellavance, RNC) Decelerations: None (Kirsten Bellavance, RNC) IV/Blood Work: IV Infusing per Order (Kirsten Bellavance, RNC) LaborFlag: Labor (QS system process) Datetime: 11/20/2016 10:23 NBP Sys/Shawna/Mean (mmHg): 157 (QS system process) : 88 (QS system process) : 116 (QS system process) Pulse: 62 (QS system process) Respirations: 18 (Kirsten Bellavance, RNC) Monitor Mode: External (Kirsten Bellavance, RNC) Frequency (min): 6-7 (Kirsten Bellavance, RNC) Quality: Mild (Kirsten Bellavance, RNC) Duration (sec): 60-80 (Kirsten Bellavance, RNC) Duration Criteria: Less than Two 120 Second Contractions (Kirsten Bellavance, RNC) Pattern: Normal: <= 5 Contractions in 10 Minutes (Kirsten Bellavance, RNC) Resting Tone (Palpate): Relaxed (Kirsten Bellavance, RNC) Monitor Mode: External US (Kirsten Bellavance, RNC) FHR Baseline Rate : 120 (Kirsten Bellavance, RNC) Variability: Moderate 6-25 bpm (Kirsten Bellavance, RNC) Accelerations: 15X15 (Kirsten Bellavance, RNC) Decelerations: None (Kirsten Bellavance, RNC) IV/Blood Work: IV Infusing per Order (Kirsten Bellavance, RNC) LaborFlag: Labor (QS system process) Datetime: 11/20/2016 10:07 NBP Sys/Shawna/Mean (mmHg): 139 (QS system process) : 83 (QS system process) : 103 (QS system process) Pulse: 67 (QS system process) Respirations: 18 (Kirsten Bellavance, RNC) Monitor Mode: External (Kirsten Bellavance, RNC) Frequency (min): 6-7 (Kirsten Bellavance, RNC) Quality: Mild (Kirsten Bellavance, RNC) Duration (sec): 50-60 (Kirsten Bellavance, RNC) Duration Criteria: Less than Two 120 Second Contractions (Kirsten Bellavance, RNC) Pattern: Normal: <= 5 Contractions in 10 Minutes (Kirsten Bellavance, RNC) Resting Tone (Palpate): Relaxed (Kirsten Bellavance, RNC) Monitor Mode: External US (Kirsten Bellavance, RNC) FHR Baseline Rate : 120 (Kirsten Bellavance, RNC) Variability: Moderate 6-25 bpm (Kirsten Bellavance, RNC) Accelerations: 15X15 (Kirsten Bellavance, RNC) Decelerations: None (Kirsten Bellavance, RNC) Antibiotics: Penicillin IV (Units) @ (Annotations: 5million units) (Kirsten Bautista, RNC) IV/Blood Work: IV Infusing per Order (Kirsten Bautista, RNC) LaborFlag: Labor (QS system process)
[2016-11-20] MEDS ORDERED: IBUPROFEN 800 MG TABLET ONE (12:18)
[2016-11-20] MEDS ORDERED: ACETAMINOPHEN WITH CODEINE #3 TABLET ONE (13:05)
[2016-11-20] MEDS ORDERED: NIFEDIPINE 30 MG TAB.ER.24 PO ONE (13:45)
--- NOTE | 2016-11-20 14:01 | L&D Flow Sheet ---
LD Flowsheet Datetime Report Generated by CPN: 11/20/2016 14:00 Datetime: 11/20/2016 13:52 NBP Sys/Shawna/Mean (mmHg): 166 (QS system process) : 84 (QS system process) : 119 (QS system process) Pulse: 68 (QS system process) Respirations: 18 (Kirsten Bellavance, RNC) Datetime: 11/20/2016 13:45 Pain Scale: 5 (Kirsten Bellavance, RNC) Datetime: 11/20/2016 13:37 NBP Sys/Shawna/Mean (mmHg): 161 (QS system process) : 98 (QS system process) : 120 (QS system process) Pulse: 59 (QS system process) Datetime: 11/20/2016 13:35 Respirations: 18 (Kirsten Bellavance, RNC) Datetime: 11/20/2016 13:22 NBP Sys/Shawna/Mean (mmHg): 161 (QS system process) : 76 (QS system process) : 108 (QS system process) Pulse: 57 (QS system process) Datetime: 11/20/2016 13:20 Respirations: 20 (Kirsten Bellavance, RNC) Datetime: 11/20/2016 13:10 NBP Sys/Shawna/Mean (mmHg): 167 (QS system process) : 82 (QS system process) : 112 (QS system process) Pulse: 57 (QS system process) Datetime: 11/20/2016 13:00 NBP Sys/Shawna/Mean (mmHg): 175 (QS system process) : 106 (QS system process) : 133 (QS system process) Pulse: 56 (QS system process) Respirations: 18 (Kirsten Bellavance, RNC) Pain Assessment Comments: tylenol #3 x2 tabs (Kirsten Bellavance, RNC) Datetime: 11/20/2016 12:50 Respirations: 20 (Kirsten Bellavance, RNC) Datetime: 11/20/2016 12:38 NBP Sys/Shawna/Mean (mmHg): 164 (QS system process) : 95 (QS system process) : 122 (QS system process) Pulse: 67 (QS system process) Datetime: 11/20/2016 12:25 Respirations: 16 (Kirsten Bellavance, RNC) Datetime: 11/20/2016 12:22 NBP Sys/Shawna/Mean (mmHg): 158 (QS system process) : 75 (QS system process) : 108 (QS system process) Pulse: 67 (QS system process) Datetime: 11/20/2016 12:10 Respirations: 16 (Kirsten Bellavance, RNC) Pain Assessment Comments: crampy motrin 800 mg given (Kirsten Bellavance, RNC) Datetime: 11/20/2016 12:08 Stage of : Recovery (Kirsten Bellavance, RNC) NBP Sys/Shawna/Mean (mmHg): 198 (QS system process) : 96 (QS system process) : 130 (QS system process) Pulse: 86 (QS system process) Datetime: 11/20/2016 12:07 Communication Comments: of viable female infant (Kirsten Tomince, RNC) Datetime: 11/20/2016 12:03 Pushing Position: Pushing with Contractions (Viviana Mojica [facility]) Pushing Progress: Descent with Pushing (Viviana Mojica [facility])
[2016-11-20] MEDS ORDERED: MEASLES,MUMPS&RUBELLA VACC/PF 0.5 ML VIAL SUBCUT PRN (14:11)
[2016-11-20] MEDS ORDERED: DIBUCAINE 1% OINTMENT 28 GM TP PRN (14:11)
[2016-11-20] MEDS ORDERED: DIPH/PERTUSS(ACELL)/TETANUS VAC/PF 0.5 ML SYR (>=10YO) IM PRN (14:11)
[2016-11-20] MEDS ORDERED: BENZOCAINE/MENTHOL AEROSOL SPRAY 56 ML TOP PRN (14:11)
[2016-11-20] MEDS ORDERED: IBUPROFEN 800 MG TABLET PO SCH (14:11)
[2016-11-20] MEDS ORDERED: OXYTOCIN/NORMAL SALINE 1,000 ML IV PRN (14:11)
[2016-11-20] MEDS ORDERED: ACETAMINOPHEN WITH CODEINE #3 TABLET PO PRN (14:11)
[2016-11-20] MEDS ORDERED: ZOLPIDEM TARTRATE 5 MG TABLET PO PRN (14:11)
--- NOTE | 2016-11-20 14:23 | Admission Physical ---
Datetime Report Generated by CPN: 11/20/2016 14:22 CURRENT ADMISSION Chief Complaint: Uterine Contractions Indication for Induction: Not Applicable Admit Plan: Initiate Labor Protocol Admit Plan- Other: CHTN with elevated BPs today, on Labetalol PIH labs with admit labs Sent from [facility] today as direct admit for labor ALLERGIES Medication Allergies: No Medication Allergies: No Known Allergies (11/16/2016) Latex: No Latex Allergies Food Allergies: denies Environmental Allergies: denies OBSTETRICAL HISTORY EDC: 11/28/2016 00:00 : 4 Para: 2 Term: 2 : 0 SAB: 0 IAB: 0 Ectopic: 0 Livin Cesareans: 0 VBACs: 0 Multiple Births: 0 Gestational Diabetes: No Rh Sensitization: No Incompetent Cervix: No VIDA: No Infertility: No ART Treatment: No Uterine Anomaly: No IUGR: No Hx Previous C/S: No Macrosomia: No Hx Loss/Stillborn: No PIH: No Hx : No Placenta Previa/Abruption: No Depression/PP Depression: No PTL/PROM: No Post Hemorrhage: No Current Procedures: Ultrasound; NST Obstetrical History Comments: g1-1996, 40 weeks, vaginal delivery, female, 6lb 8 oz, no epidural, @ [facility] g2-2000, 40 weeks, vaginal delivery, male, 6lb 13oz, no epidural, @ [employer] g3-2004, 10 weeks, EAB g4- current , CHTN on labetalol, Obesity, AMA, anemia, uterine fibroid SEE RECORDS Alcohol: No Marijuana : No Cocaine: No Other Illicit Drugs: No Cigarettes: Never Smoker. [id number] MEDICAL HISTORY Diabetes: No Blood Transfusion: No Pulmonary Disease (Asthma, TB): No Breast Disease: No Hypertension: Yes Molder Hand Surgery: No Heart Disease: No Hosp/Surgery: Yes Autoimmune Disorder: No Anesthetic Complications: No Kidney Disease: No Abnormal Pap Smear: No Neuro/Epilepsy: No Psychiatric Disorders: No Other Medical Diseases: No Hepatitis/Liver Disease: No Significant Family History: No Varicosities/Phlebitis: No Trauma/Violence : No Thyroid Dysfunction: No Medical History Comments: x2, CHTN on labetalol, anemia, obesity, AMA, uterine fibroid on left side [id number] as of april, tonsilectomy INFECTIOUS HISTORY Gonorrhea: No Genital Herpes: No Chlamydia: No Tuberculosis: No Syphilis: No Hepatitis: No HIV/AIDS Exposure: No Rash or Viral Illness: No HPV: No PHYSICAL EXAM General: Normal HEENT: Deferred Neurologic: Normal Thyroid: Deferred Heart: Normal Lungs: Normal Breast: Deferred Back: Deferred Abdomen: Normal Genitourinary Exam: Normal Extremities: Normal DTRs: Deferred Pelvic Type: Adequate Physical Exam Comments: cx 4-5/80/-1 per H.Moe CNM at [facility] Vital Signs: Reviewed FETUS A EGA: 38.6 Monitoring: External US FHR- Baseline: 130 Variability: Moderate 6-25bpm Decelerations: None Presentation: Oblique PLANS FOR LABOR AND DELIVERY Labor and Delivery: None Pain Management: Natural Feeding Preference: Both Benefit of Breast Feed Discussed: Yes Circumcision: N/A INFORMED CONSENT Assignment: Christine Antonio MD Signature: with User ID: Melissa : with User ID: Melissa
[2016-11-20] MEDS ORDERED: PENICILLIN G POTASSIUM 2,500,000 UNIT in DEXTROSE 5%-WATER 50 ML IV SCH (14:26)
[2016-11-20] MEDS: FERROUS SULFATE 325 MG TABLET PO SCH (17:27)
[2016-11-20] MEDS: IBUPROFEN 800 MG TABLET PO SCH (17:28)
[2016-11-20] MEDS: DOCUSATE SODIUM 100 MG CAPSULE PO SCH (17:28)
--- NOTE | 2016-11-20 19:01 | L&D Flow Sheet ---
LD Flowsheet Datetime Report Generated by CPN: 11/20/2016 19:00 Datetime: 11/20/2016 14:07 NBP Sys/Shawna/Mean (mmHg): 155 (QS system process) : 90 (QS system process) : 115 (QS system process) Pulse: 59 (QS system process) Datetime: 11/20/2016 13:52 NBP Sys/Shawna/Mean (mmHg): 166 (QS system process) : 84 (QS system process) : 119 (QS system process) Pulse: 68 (QS system process) Respirations: 18 (Kirsten Bellavance, RNC) Datetime: 11/20/2016 13:45 Pain Scale: 5 (Kirsten Bellavance, RNC) Datetime: 11/20/2016 13:37 NBP Sys/Shawna/Mean (mmHg): 161 (QS system process) : 98 (QS system process) : 120 (QS system process) Pulse: 59 (QS system process) Datetime: 11/20/2016 13:35 Respirations: 18 (Kirsten Bellavance, RNC) Datetime: 11/20/2016 13:22 NBP Sys/Shawna/Mean (mmHg): 161 (QS system process) : 76 (QS system process) : 108 (QS system process) Pulse: 57 (QS system process) Datetime: 11/20/2016 13:20 Respirations: 20 (Kirsten Bellavance, RNC) Datetime: 11/20/2016 13:10 NBP Sys/Shawna/Mean (mmHg): 167 (QS system process) : 82 (QS system process) : 112 (QS system process) Pulse: 57 (QS system process) Datetime: 11/20/2016 13:00 NBP Sys/Shawna/Mean (mmHg): 175 (QS system process) : 106 (QS system process) : 133 (QS system process) Pulse: 56 (QS system process) Respirations: 18 (Kirsten Bellavance, RNC) Pain Assessment Comments: tylenol #3 x2 tabs (Kirsten Bellavance, RNC) Datetime: 11/20/2016 12:50 Respirations: 20 (Kirsten Bellavance, RNC) Datetime: 11/20/2016 12:38 NBP Sys/Shawna/Mean (mmHg): 164 (QS system process) : 95 (QS system process) : 122 (QS system process) Pulse: 67 (QS system process) Datetime: 11/20/2016 12:25 Respirations: 16 (Kirsten Bellavance, RNC) Datetime: 11/20/2016 12:22 NBP Sys/Shawna/Mean (mmHg): 158 (QS system process) : 75 (QS system process) : 108 (QS system process) Pulse: 67 (QS system process) Datetime: 11/20/2016 12:10 Respirations: 16 (Kirsten Bellavance, RNC) Pain Assessment Comments: crampy motrin 800 mg given (Kirsten Bellavance, RNC) Datetime: 11/20/2016 12:08 Stage of : Recovery (Kirsten Bellavance, RNC) NBP Sys/Shawna/Mean (mmHg): 198 (QS system process) : 96 (QS system process) : 130 (QS system process) Pulse: 86 (QS system process) Datetime: 11/20/2016 12:07 Communication Comments: of viable female infant (Kirsten Bellavance, RNC) Datetime: 11/20/2016 12:03 Pushing Position: Pushing with Contractions (Viviana Yunior, RNC) Pushing Progress: Descent with Pushing (Viviana Yunior, RNC) Datetime: 11/20/2016 11:58 Pushing: Coached on Pushing; Urge to Push (Viviana Yunior, [facility]) Pushing Position: Pushing with Contractions (Viviana Yunior, RNC) Pushing Progress: Descent with Pushing (Viviana Yunior, RNC) Preparation for Delivery: Perineal Prep Done; Setup for Delivery (Viviana Yunior, [facility]) Stage 2 Comments: K Paco CNEly at BS, pushing with pt (Viviana Yunior, RNC) Datetime: 11/20/2016 11:54 Dilatation (cm): 10.0 (Viviana Mojica, RNC) Exam by: Kunal Antonio CNM (Viviana Mojica, RNC) Datetime: 11/20/2016 11:53 NBP Sys/Shawna/Mean (mmHg): 167 (QS system process) : 112 (QS system process) : 135 (QS system process) Pulse: 62 (QS system process) Respirations: 18 (Kirsten Bellavance, RNC) Monitor Mode: External (Kirsten Bellavance, RNC) Frequency (min): 4-5 (Kirsten Bellavance, RNC) Quality: Moderate (Kirsten Bellavance, RNC) Duration (sec): 50-80 (Kirsten Bellavance, RNC) Duration Criteria: Less than Two 120 Second Contractions (Kirsten Bellavance, RNC) Pattern: Normal: <= 5 Contractions in 10 Minutes (Kirsten Bellavance, RNC) Resting Tone (Palpate): Relaxed (Kirsten Bellavance, RNC) Monitor Mode: External US (Kirsten Bellavance, RNC) FHR Baseline Rate : 120 (Kirsten Bellavance, RNC) Variability: Moderate 6-25 bpm (Kirsten Bellavance, RNC) Accelerations: 15X15 (Kirsten Bellavance, RNC) Decelerations: None (Kirsten Bellavance, RNC) LaborFlag: Labor (QS system process) Datetime: 11/20/2016 11:37 NBP Sys/Shawna/Mean (mmHg): 165 (QS system process) : 114 (QS system process) : 135 (QS system process) Pulse: 73 (QS system process) Monitor Mode: External (Kirsten Bellavance, RNC) Frequency (min): 5-7 (Kirsten Bellavance, RNC) Quality: Mild (Kirsten Bellavance, RNC) Duration (sec): 50-70 (Kirsten Bellavance, RNC) Duration Criteria: Less than Two 120 Second Contractions (Kirsten Bellavance, RNC) Pattern: Normal: <= 5 Contractions in 10 Minutes (Kirsten Bellavance, RNC) Resting Tone (Palpate): Relaxed (Kirsten Bellavance, RNC) Monitor Mode: External US (Kirsten Bellavance, RNC) FHR Baseline Rate : 120 (Kirsten Bellavance, RNC) Variability: Moderate 6-25 bpm (Kirsten Bellavance, RNC) Accelerations: 15X15 (Kirsten Bellavance, RNC) Decelerations: None (Kirsten Bellavance, RNC) Pain Assessment Comments: resting with eyes closed (Kirsten Bellavance, RNC) LaborFlag: Labor (QS system process) Datetime: 11/20/2016 11:23 NBP Sys/Shawna/Mean (mmHg): 168 (QS system process) : 100 (QS system process) : 125 (QS system process) Pulse: 66 (QS system process) Respirations: 16 (Kirsten Bellavance, RNC) Pain Scale: 5 (Kirsten Bellavance, RNC) Pain Presence: Intermittent (Kirsten Bellavance, RNC) Pain Type: Cramping (Kirsten Bellavance, RNC) Pain Location: Abdomen (Kirsten Bellavance, RNC) Pain Goal: 2 (Kirsten Bellavance, RNC) Pain Relief Measures: Pain Medication Given (Kirsten Bellavance, RNC) Pain Coping: Breathing Through Contractions (Kirsten Bellavance, RNC) Pain Assessment Comments: fentanyl 100 mcg given (Kirsten Bellavance, RNC) Level of Consciousness: Fully Conscious (Kirsten Bellavance, RNC) DTR's/Clonus: DTRs 2+ (Kirsten Bellavance, RNC) Headache: Denies (Kirsten Bellavance, RNC) Breath Sounds, Left: Clear and Equal (Kirsten Bellavance, RNC) Breath Sounds, Right: Clear and Equal (Kirsten Bellavance, RNC) Nausea/Vomiting: Denies (Kirsten Bellavance, RNC) RUQ Epigastric Pain: Denies (Kirsten Bellavance, RNC) Analgesics/Sedatives: Fentanyl (mcg) @ (Annotations: 100 mcg iv) (Kirsten Bellavance, RNC) LaborFlag: Labor (QS system process) Datetime: 11/20/2016 11:18 NBP Sys/Shawna/Mean (mmHg): 151 (QS system process) : 99 (QS system process) : 117 (QS system process) Pulse: 62 (QS system process) Respirations: 16 (Kirsten Bellavance, RNC) Monitor Mode: External (Kirsten Bellavance, RNC) Frequency (min): 5-7 (Kirsten Bellavance, RNC) Quality: Mild (Kirsten Bellavance, RNC) Duration (sec): 50-70 (Kirsten Bellavance, RNC) Duration Criteria: Less than Two 120 Second Contractions (Kirsten Bellavance, RNC) Pattern: Normal: <= 5 Contractions in 10 Minutes (Kirsten Bellavance, RNC) Resting Tone (Palpate): Relaxed (Kirsten Bellavance, RNC) Monitor Mode: External US (Kirsten Bellavance, RNC) FHR Baseline Rate : 120 (Kirsten Bellavance, RNC) Variability: Moderate 6-25 bpm (Kirsten Bellavance, RNC) Accelerations: 15X15 (Kirsten Bellavance, RNC) Decelerations: None (Kirsten Bellavance, RNC) Dilatation (cm): 6.0 (Kirsten Bellavance, RNC) Effacement (%): 100 (Kirsten Bellavance, RNC) Station: -1 (Kirsten Bellavance, RNC) Exam by: Katharina Bautista RNC (Kirsten Bellavance, RNC) Membrane Status: Intact (Kirsten Bellavance, RNC) LaborFlag: Labor (QS system process) Datetime: 11/20/2016 11:00 I/O Interventions: Up to BR (Kirsten Bellavance, RNC) Datetime: 11/20/2016 10:52 NBP Sys/Shawna/Mean (mmHg): 176 (QS system process) : 111 (QS system process) : 137 (QS system process) Pulse: 68 (QS system process) Respirations: 16 (Kirsten Bellavance, RNC) Monitor Mode: External (Kirsten Bellavance, RNC) Frequency (min): 5-7 (Kirsten Bellavance, RNC) Quality: Mild (Kirsten Bellavance, RNC) Duration (sec): 50-70 (Kirsten Bellavance, RNC) Duration Criteria: Less than Two 120 Second Contractions (Kirsten Bellavance, RNC) Pattern: Normal: <= 5 Contractions in 10 Minutes (Kirsten Bellavance, RNC) Resting Tone (Palpate): Relaxed (Kirsten Bellavance, RNC) Monitor Mode: External US (Kirsten Bellavance, RNC) FHR Baseline Rate : 120 (Kirsten Bellavance, RNC) Variability: Moderate 6-25 bpm (Kirsten Bellavance, RNC) Accelerations: 15X15 (Kirsten Bellavance, RNC) Decelerations: None (Kirsten Bellavance, RNC) Antiemetics/Antacids: Zofran IV (mg) @ (Annotations: 4) (Kirsten Bellavance, RNC) LaborFlag: Labor (QS system process) Datetime: 11/20/2016 10:39 NBP Sys/Shawna/Mean (mmHg): 172 (QS system process) : 112 (QS system process) : 135 (QS system process) Pulse: 65 (QS system process) Respirations: 16 (Kirsten Bellavance, RNC) Monitor Mode: External (Kirsten Bellavance, RNC) Frequency (min): 6-7 (Kirsten Bellavance, RNC) Quality: Mild (Kirsten Bellavance, RNC) Duration (sec): 60-80 (Kirsten Bellavance, RNC) Duration Criteria: Less than Two 120 Second Contractions (Kirsten Bellavance, RNC) Pattern: Normal: <= 5 Contractions in 10 Minutes (Kirsten Bellavance, RNC) Resting Tone (Palpate): Relaxed (Kirsten Bellavance, RNC) Monitor Mode: External US (Kirsten Bellavance, RNC) FHR Baseline Rate : 120 (Kirsten Bellavance, RNC) Variability: Moderate 6-25 bpm (Kirsten Bellavance, RNC) Accelerations: 15X15 (Kirsten Bellavance, RNC) Decelerations: None (Kirsten Bellavance, RNC) IV/Blood Work: IV Infusing per Order (Kirsten Bellavance, RNC) LaborFlag: Labor (QS system process) Datetime: 11/20/2016 10:23 NBP Sys/Shawna/Mean (mmHg): 157 (QS system process) : 88 (QS system process) : 116 (QS system process) Pulse: 62 (QS system process) Respirations: 18 (Kirsten Bellavance, RNC) Monitor Mode: External (Kirsten Bellavance, RNC) Frequency (min): 6-7 (Kirsten Bellavance, RNC) Quality: Mild (Kirsten Bellavance, RNC) Duration (sec): 60-80 (Kirsten Bellavance, RNC) Duration Criteria: Less than Two 120 Second Contractions (Kirsten Bellavance, RNC) Pattern: Normal: <= 5 Contractions in 10 Minutes (Kirsten Bellavance, RNC) Resting Tone (Palpate): Relaxed (Kirsten Bellavance, RNC) Monitor Mode: External US (Kirsten Bellavance, RNC) FHR Baseline Rate : 120 (Kirsten Bellavance, RNC) Variability: Moderate 6-25 bpm (Kirsten Bellavance, RNC) Accelerations: 15X15 (Kirsten Bellavance, RNC) Decelerations: None (Kirsten Bellavance, RNC) IV/Blood Work: IV Infusing per Order (Kirsten Bellavance, RNC) LaborFlag: Labor (QS system process) Datetime: 11/20/2016 10:07 NBP Sys/Shawna/Mean (mmHg): 139 (QS system process) : 83 (QS system process) : 103 (QS system process) Pulse: 67 (QS system process) Respirations: 18 (Kirsten Bellavance, RNC) Monitor Mode: External (Kirsten Bellavance, RNC) Frequency (min): 6-7 (Kirsten Bellavance, RNC) Quality: Mild (Kirsten Bellavance, RNC) Duration (sec): 50-60 (Kirsten Bellavance, RNC) Duration Criteria: Less than Two 120 Second Contractions (Kirsten Bellavance, RNC) Pattern: Normal: <= 5 Contractions in 10 Minutes (Kirsten Bellavance, RNC) Resting Tone (Palpate): Relaxed (Kirsten Bellavance, RNC) Monitor Mode: External US (Kirsten Bellavance, RNC) FHR Baseline Rate : 120 (Kirsten Bellavance, RNC) Variability: Moderate 6-25 bpm (Kirsten Bellavance, RNC) Accelerations: 15X15 (Kirsten Bellavance, RNC) Decelerations: None (Kirsten Bellavance, RNC) Antibiotics: Penicillin IV (Units) @ (Annotations: 5million units) (Kirsten Bellavance, RNC) IV/Blood Work: IV Infusing per Order (Kirsten Bellavance, RNC) LaborFlag: Labor (QS system process) Datetime: 11/20/2016 09:52 NBP Sys/Shawna/Mean (mmHg): 150 (QS system process) : 104 (QS system process) : 123 (QS system process) Pulse: 63 (QS system process) LaborFlag: Labor (QS system process) Datetime: 11/20/2016 09:51 NBP Sys/Shawna/Mean (mmHg): 164 (QS system process) : 102 (QS system process) : 123 (QS system process) Pulse: 80 (QS system process) Respirations: 16 (Kirsten Bellavance, RNC) Temperature (F): 98.5 (Kirsten Bellavance, RNC) Temperature (C): 36.9 (QS system process) Temperature Route: Oral (Kirsten Bellavance, RNC) Monitor Mode: External (Kirsten Bellavance, RNC) Monitor Interventions for UA: [place] Adjusted (Kirsten Bellavance, RNC) Frequency (min): 6-8 (Kirsten Bellavance, RNC) Quality: Mild (Kirsten Bellavance, RNC) Duration (sec): 50-60 (Kirsten Bellavance, RNC) Duration Criteria: Less than Two 120 Second Contractions (Kirsten Bellavance, RNC) Pattern: Normal: <= 5 Contractions in 10 Minutes (Kirsten Bellavance, RNC) Resting Tone (Palpate): Relaxed (Kirsten Bellavance, RNC) Monitor Mode: External US (Kirsten Bellavance, RNC) Monitor Interventions for FHR: Ultrasound Adjusted (Kirsten Bellavance, RNC) FHR Baseline Rate : 120 (Kirsten Bellavance, RNC) Variability: Moderate 6-25 bpm (Kirsten Bellavance, RNC) Accelerations: 15X15 (Kirsten Bellavance, RNC) Decelerations: None (Kirsten Bautista, RNC) Pain Assessment Comments: crampy (Kirsten Bautista, [facility]) Level of Consciousness: Fully Conscious (Kirsten Bautista, PHU[facility]) DTR's/Clonus: DTRs 2+ (Kirsten Bautista, RNC) Headache: Denies (Kirsten Bautista, PHU[facility]) Breath Sounds, Left: Clear and Equal (Kirsten Bautista, RNC) Nausea/Vomiting: Present (Kirsten Bautista, RNC) RUQ Epigastric Pain: Denies (Kirsten Bautista, RNC) IV/Blood Work: IV Started; IV Bolus Started; IV Infusing per Order; New IV Bag Hung (Kirsten Bautista, RNC) Patient Position/Activity: Left Tilt (Kirsten Bautista, PHUCC) Comfort Measures: Breathing/Relaxation (KALEY Ludwig) I/O Interventions: Ice Chips Given (KALEY Ludwig) Instructional Method: Verbal (KALEY Ludwig) Plan of Care: Plan of Care Discussed (KALEY Ludwig) Unit Routine: [place] to Room; Call Ferrera; Bed; Visiting Policy; Consents Signed (KALEY Ludwig) LaborFlag: Labor (QS system process)
[2016-11-20] MEDS: ACETAMINOPHEN WITH CODEINE #3 TABLET PO PRN (19:48)
[2016-11-20] MEDS: LABETALOL HCL 200 MG TABLET PO SCH (21:38)
[2016-11-21] MEDS: IBUPROFEN 800 MG TABLET PO SCH ×3 (01:48→18:15)
--- NOTE | 2016-11-21 06:01 | L&D General Admission ---
General Admit Datetime Report Generated by CPN: 11/21/2016 06:00 INFORMATION Patient Age: 36 (10/10/2016 16:43:QS system process) EDC: 11/28/2016 00:00 (10/10/2016 16:48:Lauren Lopez RN) : 4 (10/10/2016 16:48:Lauren Lopez RN) Para: 2 (11/16/2016 07:39:Samanta Padron RN) Term: 2 (10/10/2016 16:48:Ness Valdez RN) : 0 (10/10/2016 16:48:Ness Valdez RN) Spontaneous Abortions: 0 (10/10/2016 16:48:Ness Valdez RN) Induced Abortions: 0 (10/10/2016 16:48:Ness Valdez RN) Livin (10/10/2016 16:48:Ness Valdez RN) Cesareans: 0 (10/10/2016 16:48:Ness Valdez RN) VBACs: 0 (10/10/2016 16:48:Ness Valdez RN) Ectopic: 0 (10/10/2016 16:48:Ness Valdez RN) Multiple Births: 0 (10/10/2016 16:48:Ness Valdez RN) Baby, Number in Womb: 1 (11/16/2016 07:39:Samanta Padron RN) CARE Primary Multimedia Designer: [facility] (10/10/2016 16:48:Lauren Lopez RN) Month of 1st Visit: march (10/10/2016 16:48:KALEY Ludwig) Adequate Care: Yes (10/10/2016 16:48:KALEY Ludwig) Prepregnancy Weight (lb): 183 (10/10/2016 16:48:KALEY Ludwig) Prepregnancy Weight (kg): 83.2 (10/10/2016 16:48:QS system process) Height (in): 65 (11/20/2016 10:25:QS system process) ALLERGIES Medication Allergy: No (10/10/2016 16:48:Ness Valdez RN) Medication Allergies: No Known Allergies (11/16/2016) (11/16/2016 05:27:QS system process) Latex Allergy: No Latex Allergies (10/10/2016 16:48:Ness Valdez RN) Food Allergies: denies (10/10/2016 16:48:Karla Treviño RN) Environmental Allergies: denies (10/10/2016 16:48:Karla Treviño RN) COMMUNICATION Primary Language: Ukrainian (10/10/2016 16:48:Ness Valdez RN) Medical Tx Preferred Language: Ukrainian (10/10/2016 16:48:Ness Valdez RN) Communication Barrier(s): None (10/10/2016 16:48:Karla Treviño RN) DEMOGRAPHICS Address: [place] [address] (10/10/2016 16:43:QS system process) Zipcode: [address] (10/10/2016 16:43:QS system process) Home (10/10/2016 16:43:QS system process) N: [phone] (10/10/2016 16:43:QS system process) Next of Kin Name: BILL MCFADDEN (10/10/2016 16:43:QS system process) Next of Kin (10/10/2016 16:43:QS system process) Next of Kin Relationship: MO (10/10/2016 16:43:QS system process) Date of : 1980 (10/10/2016 16:43:QS system process) Marital Status: (10/10/2016 16:43:QS system process) Sex: Female (10/10/2016 16:43:QS system process) Race: (10/10/2016 16:43:QS system process) Ethnicity: Non- or (10/10/2016 16:43:QS system process) Uatsdin: Other (10/10/2016 16:43:QS system process) DRUG AND ALCOHOL USE Alcohol: No (10/10/2016 16:48:Ness Valdez RN) Cigarettes: Never Smoker. [id number] (10/10/2016 16:48:Ness Valdez RN) Marijuana: No (10/10/2016 16:48:Ness Valdez RN) Cocaine: No (10/10/2016 16:48:Ness Valdez RN) Other Illicit Drugs: No (10/10/2016 16:48:Ness Valdez RN) VACCINE HISTORY Influenza Vaccine: No (10/10/2016 16:48:Ness Valdez RN) Pneumococcal Vaccine: No (10/10/2016 16:48:Ness Valdez RN) Tetanus Vaccine: Yes (10/10/2016 16:48:Ness Valdez RN) Tetanus Date: 09/11 (10/10/2016 16:48:Ness Valdez RN) Tdap Vaccine: Yes (10/10/2016 16:48:Ness Valdez RN) Tdap Date: 09/11 (10/10/2016 16:48:Ness Valdez RN) Hepatitis B Vaccine: Yes (10/10/2016 16:48:Ness Valdez RN) Fire Systems Inspector: Other (10/10/2016 16:48:KALEY Ludwig) Feeding Preference: Both (10/10/2016 16:48:Karla Treviño RN) Benefit of Breast Feed Discussed: Yes (10/10/2016 16:48:Karla Treviño RN) Circumcision: N/A (10/10/2016 16:48:Karla Treviño RN) Classes Attended: No (10/10/2016 16:48:aKrla Treviño RN) Tubal Ligation: No (10/10/2016 16:48:Karla Treviño RN) Tubal Authorization Signed: N/A (10/10/2016 16:48:Karla Treviño RN) Consent: N/A (10/10/2016 16:48:Karla Treviño RN) Consent Signed: N/A (10/10/2016 16:48:Karla Treviño RN) Pain Management Plans: Natural (10/10/2016 16:48:Karla Treviño RN) Plans for Labor and Delivery: None (10/10/2016 16:48:Karla Treviño RN) Support Person: Salty (10/10/2016 16:48:Karla Treviño RN) Support Person Relationship: (10/10/2016 16:48:Karla Treviño RN) Cultural/Spritual Practice: No (10/10/2016 16:48:Karla Treviño RN) Spir/Cult Dietary Needs: No (10/10/2016 16:48:Karla Treviño RN) LIVING SITUATION/DISCHARGE PLAN Living Arrangements: House (10/10/2016 16:48:Karla Treviño RN) Adequate Access to:: Electric; Heat; Refrigeration; Plumbing/Running water; Phone; Transportation (10/10/2016 16:48:Karla Treviño RN) WIC Program: Yes (10/10/2016 16:48:Karla Treviño RN) Discharge Tongue Lining Stitcher Person: Salty (10/10/2016 16:48:Karla Treviño RN) Person to Help after Discharge: Salty (10/10/2016 16:48:Karla Treviño RN) Currently Using Commun Resources: Yes (10/10/2016 16:48:Karla Treviño RN) Specify Current Resource Used: medicaid (10/10/2016 16:48:Karla Treviño RN) Outside Agency/Managed Care Specialist: No (10/10/2016 16:48:Karla Treviño RN) Car Seat for Discharge: Yes (10/10/2016 16:48:Karla Treviño RN) Adoption Requested: No (10/10/2016 16:48:Karla Treviño RN) Pt Contact w/ Post : N/A (10/10/2016 16:48:Karla Treviño RN) LABS Blood Type: B Positive (10/10/2016 16:48:Lauren Lopez RN) Antibody Screen: neg (10/10/2016 16:48:Lauren Lopez RN) Hemoglobin: 11.4 L (11/20/2016 10:50:QS system process) Hematocrit: 34.1 L (11/20/2016 10:50:QS system process) MCV: 80 (11/20/2016 10:50:QS system process) Group Beta Strep: positive (10/10/2016 16:48:Karla Treviño RN) Gonorrhea: Negative (10/10/2016 16:48:Ness Valdez RN) Chlamydia: Negative (10/10/2016 16:48:Ness Valdez RN) RPR/VDRL: Nonreactive (10/10/2016 16:48:Lauren Lopez RN) Hepatitis B: Negative (10/10/2016 16:48:Lauren Lopez RN) Rubella: Immune (10/10/2016 16:48:Lauren Lopez RN) OB/PREVIOUS HISTORY Previous Procedures: Ultrasound; NST (10/10/2016 16:48:Karla Treviño RN) Current Procedures: Ultrasound; NST (10/10/2016 16:48:Karla Treviño RN) History of Previous : No (10/10/2016 16:48:Karla Treviño RN) History of Gestational Diabetes: No (10/10/2016 16:48:Karla Treviño RN) History of PIH: No (10/10/2016 16:48:Karla Treviño RN) History of Incompetent Cervix: No (10/10/2016 16:48:Karla Treviño RN) History of Placenta Previa/Abrup: No (10/10/2016 16:48:Karla Treviño RN) History of Macrosomia: No (10/10/2016 16:48:Karla Treivño RN) History of IUGR: No (10/10/2016 16:48:Karla Treviño RN) History of Hemorrhage: No (10/10/2016 16:48:Karla Treviño RN) History of Loss/Stillborn: No (10/10/2016 16:48:Karla Treviño RN) History of : No (10/10/2016 16:48:Karla Treviño RN) History of D (Rh) Sensitization: No (10/10/2016 16:48:Karla Treviño RN) History Recurrent Loss/Stillborn: No (10/10/2016 16:48:Karla Treviño RN) History Depression/PP Depression: No (10/10/2016 16:48:Karla Treviño RN) History of Uterine Anomaly/VIDA: No (10/10/2016 16:48:Karla Treviño RN) History of Infertility: No (10/10/2016 16:48:Karla Treviño RN) History of ART Treatment: No (10/10/2016 16:48:Karla Treviño RN) History of VIDA: No (10/10/2016 16:48:Karla Treviño RN) Comments Obstetrical History: g1-1996, 40 weeks, vaginal delivery, female, 6lb 8 oz, no epidural, @ [facility] g2-2000, 40 weeks, vaginal delivery, male, 6lb 13oz, no epidural, @ [employer] g3-2004, 10 weeks, EAB g4- current , CHTN on labetalol, Obesity, AMA, anemia, uterine fibroid (10/10/2016 16:48:Karla Treviño RN) MEDICAL HISTORY Med Hx Diabetes: No (10/10/2016 16:48:Karla Treviño RN) Med Hx Hypertension: Yes (10/10/2016 16:48:Karla Treviño RN) Med Hx Heart Disease: No (10/10/2016 16:48:Karla Treviño RN) Med Hx Autoimmune Disorder: No (10/10/2016 16:48:Karla Treviño RN) Med Hx Kidney Disease/UTI: No (10/10/2016 16:48:Karla Treviño RN) Med Hx Neurologic/Epilepsy: No (10/10/2016 16:48:Karla Treviño RN) Med Hx Psychiatric Disorders: No (10/10/2016 16:48:Karla Treviño RN) Med Hx Hepatitis/Liver Disease: No (10/10/2016 16:48:Karla Treviño RN) Med Hx Varicosities/Phlebitis: No (10/10/2016 16:48:Karla Treviño RN) Med Hx Thyroid Dysfunction: No (10/10/2016 16:48:Karla Treviño RN) Med Hx Trauma/Violence: No (10/10/2016 16:48:Karla Treviño RN) Med Hx Blood Transfusion: No (10/10/2016 16:48:Karla Treviño RN) Med Hx Pulmonary (Asthma,TB): No (10/10/2016 16:48:Karla Treviño RN) Med Hx Breast: No (10/10/2016 16:48:Karla Treviño RN) Med Hx BIT BENDER Surgery: No (10/10/2016 16:48:Karla Treviño RN) Med Hx Hospitalization/Surgery: Yes (10/10/2016 16:48:Karla Treviño RN) Med Hx Anesthetic Complications: No (10/10/2016 16:48:Karla Treviño RN) Med Hx Abnormal Pap Smear: No (10/10/2016 16:48:Karla Treviño RN) Other Medical Diseases: No (10/10/2016 16:48:Karla Treviño RN) Med Hx Significant Family Hx: No (10/10/2016 16:48:Karla Treviño RN) Details of Med/Surg Hx: x2, CHTN on labetalol, anemia, obesity, AMA, uterine fibroid on left side 5.6x4.95x5.1 as of april, tonsilectomy (10/10/2016 16:48:Karla Treviño RN) INFECTIOUS HISTORY Inf Hx Gonorrhea: No (10/10/2016 16:48:Karla Treviño RN) Inf Hx Chlamydia: No (10/10/2016 16:48:Karla Treviño RN) Inf Hx Syphilis: No (10/10/2016 16:48:Karla Treviño RN) Inf Hx HIV/AIDS: No (10/10/2016 16:48:Karla Treviño RN) Inf Hx Human Papilloma Virus: No (10/10/2016 16:48:Karla Treviño RN) Inf Hx Pt/Partner Genital Herpes: No (10/10/2016 16:48:Karla Treviño RN) Inf Hx Tuberculosis/Exposure: No (10/10/2016 16:48:Karla Treviño RN) Inf Hx Hepatitis B,C: No (10/10/2016 16:48:Karla Treviño RN) Inf Hx Rash or Viral Illness: No (10/10/2016 16:48:Karla Treviño RN) GENETIC HISTORY Gen Hx Age >=35 at [place]: Yes (10/10/2016 16:48:Karla Treviño RN) Gen Hx Thalassemia: No (10/10/2016 16:48:Karla Treviño RN) Gen Hx Congenital Heart Defect: No (10/10/2016 16:48:Karla Treviño RN) Gen Hx Neural Tube Defect: No (10/10/2016 16:48:Karla Treviño RN) Gen Hx Down's Syndrome: No (10/10/2016 16:48:Karla Treviño RN) Gen Hx Navi-Sachs: No (10/10/2016 16:48:Karla Treviño RN) Gen Hx Linda: No (10/10/2016 16:48:Karla Treviño RN) Gen Hx Familial Dysautonomia: No (10/10/2016 16:48:Karla Treviño RN) Gen Hx Sickle Cell Disease/Trait: No (10/10/2016 16:48:Karla Treviño RN) Gen Hx Hemophilia/Blood Disorder: No (10/10/2016 16:48:Karla Treviño RN) Gen Hx Muscular Dystrophy: No (10/10/2016 16:48:Karla Treviño RN) Gen Hx Cystic Fibrosis: No (10/10/2016 16:48:Karla Treviño RN) Gen Hx Huntingtons Chorea: No (10/10/2016 16:48:Karla Treviño RN) Gen Hx Mental Retardation/Autism: No (10/10/2016 16:48:Karla Treviño RN) Gen Hx Tested for Fragile X: No (10/10/2016 16:48:Karla Treviño RN) Gen Hx Other Inher/Chromosomal: No (10/10/2016 16:48:Karla Treviño RN) Gen Hx Maternal Metabolic DO: No (10/10/2016 16:48:Karla Treviño RN) Gen Hx Pt Father or FOB Defect: No (10/10/2016 16:48:Karla Treviño RN) Gen Hx Other Genetic History: No (10/10/2016 16:48:Karla Treviño RN) Gen Hx Drugs/Meds since LMP: No (10/10/2016 16:48:Karla Treviño RN) Gen Hx Medications: vitamins, Labetalol, Iron, Benadryl, Zantac, Tylenol (10/10/2016 16:48:Karla Trevñio RN)
--- NOTE | 2016-11-21 06:16 | L&D Care Plan ---
LD CARE PLANS Datetime Report Generated by CPN: 11/21/2016 06:15 Datetime: 11/20/2016 09:35 State: Actual (KALEY Ludwig) Related To: Labor and Delivery Process (KALEY Ludwig) Goal(s): Patients Pain will be Assessed and Managed; Patient will Verbalize Adequate Relief of Pain or the Ability to [place] with Current Pain (KALEY Ludwig) Interventions: Assess Pain Severity on Scale of 0 (None) to 5 (Severe); Assess Type, Location and Intensity of Pain Each Time Client Reports Discomfort and Notify Provider if Unusal Pain Develops; Encourage Proper Breathing and Relaxation Techniques; Offer Alternatives Such as Repositioning, Calm Environment, Massages, Diversional Activities, Ice Pack, Splinting, and Ambulation; Administer Analgesics as Ordered; Assist with Epidural Placement as Appropriate; Evaluate Therapeutic Effectiveness of Medication and Treatments (KALEY Ludwig) Outcome: Patient will Report Absence or Relief of Pain Consistent with Established Pain Goal (KALEY Ludwig) Status: Ongoing (KALEY Ludwig) Outcome: Patient will have a Decrease in Signs and Symptoms of Discomfort (KALEY Ludwig) Status: Ongoing (KALEY Ludwig) Outcome: Pain will be Controlled During Procedures (KALEY Luwdig) Status: Ongoing (KALEY Luwdig) State: Actual (KALEY Ludwig) Related To: Labor and Delivery Process; Fear of Unknown (KALEY Ludwig) Goal(s): Patient will have Decreased Anxiety and be able to Function at Acceptable Levels (KALEY Ludwig) Interventions: Assess Verbal and Nonverbal Behavioral Indicators of Anxiety; Assist Patient to Identify and Verbalize Symptoms of Anxiety; Identify and Demonstrate Techniques to Control Anxiety; Assist Patient with Coping Mechanisms to Manage Anxiety; Provide Theraputic Touch for the Patient; Explain to Patient, Using a Calm Reassuring Approach and Nonmedical Terms, All Activities, Procedures, and Concerns; Instruct Patient and Family about Post Discharge Care, Limitations, Symptoms to Report and Resources Available (KALEY Ludwig) Outcome: Patient will Identify, Verbalize and Demonstrate Techniques to Control Anxiety (KALEY Ludwig) Status: Ongoing (KALEY Ludwig) Outcome: Patient's Posture, Facial Expressions, Gestures and Activity Level will Reflect Decreased Anxiety (KALEY Ludwig) Status: Ongoing (KALEY Ludwig) Outcome: Patient will Verbalize a Sense of Control and/or Acceptance of the Situation (KALEY Ludwig) Status: Ongoing (KALEY Ludwig) Outcome: Patient will Identify and Utilize Support Person (KALEY Ludwig) Status: Ongoing (KALEY Ludwig) State: Actual (KALEY Ludwig) Related To: Labor and Delivery Process (KALEY Ludwig) Goal(s): Patient will Accurately Verbalize Understanding of Plan of Care and Treatment; Patient and Family will Accurately Verbalize Understanding of the Disease Process (KALEY Ludwig) Interventions: Assess Motivation and Willingness of Patient/Family to Learn; Assess Preferred Learning Mode: One to One Instruction, Reading, Videos, Group Discussion or Demonstration; Assess Barriers to Learning: Pain, Emotional State, Language Barrier, Cognitive Impairment, Visual or Hearing Deficits; Assess Patient and Family Knowledge of Disease Process, Medications and Treatment; Discuss Therapy and/or Treatment Options, Describe Rationale Behind Management, Therapy and Treatment Recommendations; Instruct Patient and Family on Signs and Symptoms to Report; Instruct Patient and Family on Medication Effects and Side Effects; Provide Appropriate and Timely Education Using Multiple Techniques; Provide Patient and Family with Support Group Information and Resources; Give Clear and Thorough Explanations and Demonstrations (KALEY Ludwig) Outcome: Patient and Family will Verbalize Understanding of Condition, Treatment and Signs and Symptoms to Report (Kirsten Bautista RNC) Status: Ongoing (KALEY Ludwig) Outcome: Patient will Identify Perceived Learning Needs and Express Motivation to Learn (KALEY Ludwig) Status: Ongoing (KALEY Ludwig) Outcome: Patient will Verbalize Understanding of Desired Content, and/or Performs Desired Skill Prior to Discharge (KALEY Ludwig) Status: Ongoing (KALEY Ludwig)
[2016-11-21 08:46] LABS: HEMATOCRIT 31.5 % (36.0-47.0); HEMOGLOBIN 10.3 g/dL (12.0-15.5); HGB HCT DIFFERENCE -0.6; MEAN CORPUSCULAR HEMOGLOBIN 26.3 pg (27.0-33.4); MEAN CORPUSCULAR HGB CONC 32.8 g/dL (32.0-36.0); MEAN CORPUSCULAR VOLUME 80 fl (80-97); RED BLOOD COUNT 3.93 10^6/uL (3.72-5.28); RED CELL DISTRIBUTION WIDTH 14.3 % (11.5-14.0); WHITE BLOOD COUNT 6.9 10^3/uL (4.0-10.5)
[2016-11-21] MEDS: LABETALOL HCL 200 MG TABLET PO SCH ×2 (09:11→22:05)
[2016-11-21] MEDS: DOCUSATE SODIUM 100 MG CAPSULE PO SCH ×2 (09:11→18:15)
[2016-11-21] MEDS: SENNOSIDES/DOCUSATE 8.6-50 MG 1 EACH TABLET PO SCH (09:12)
[2016-11-21] MEDS: FERROUS SULFATE 325 MG TABLET PO SCH ×2 (09:12→18:15)
[2016-11-21] MEDS ORDERED: PRENATAL VITAMIN W-O CA NO5/FE FUMARATE/FA CAPSULE PO SCH (10:00)
[2016-11-21] MEDS: NIFEDIPINE 30 MG TAB.ER.24 PO SCH (10:23)
--- NOTE | 2016-11-21 10:40 | PDOC PROGRESS REPORT ---
Subjective-OB Subjective: Post Delivery Day: 36 year old. Denies any needs at this time pt bonding well with infant ff@u-1 mild lochia no complaints anticipate d/c in am Physical Exam (OB) Vital Signs: Temp Pulse Resp BP Pulse Ox 97.9 F 75 16 126/90 H 100 11/21/16 08:51 11/21/16 08:51 11/21/16 08:51 11/21/16 08:51 11/21/16 08:51 Intake & Output 11/20/16 11/21/16 11/22/16 06:59 06:59 06:59 Weight 90.9 kg - PIH/Pre-Eclampsia DTR's: 1 + Clonus: Negative Headache: Absent Epigastric Pain: No Visual Changes: No - Lochia Lochia Amount: Scant < 10 ml Lochia Color: Rubra/Red - Abdomen Description: Tender, Soft Hernia Present: No Fundal Description: Firm, Non-Midline Describe if Not Midline: slightly to right, pt due to void Fundal Height: u/u - u/2 Objective-Diagnostic Laboratory: 11/21/16 08:38 11/20/16 10:50 11/20/16 11/20/16 11/20/16 10:50 10:50 10:50 WBC 3.9 L RBC 4.28 Hgb 11.4 L Hct 34.1 L MCV 80 MCH 26.7 L MCHC 33.4 RDW 14.2 H Plt Count 230 Seg Neutrophils % 49.0 Lymphocytes % 39.4 Monocytes % 9.0 Eosinophils % 2.2 Basophils % 0.4 Absolute Neutrophils 1.9 Absolute Lymphocytes 1.5 Absolute Monocytes 0.4 Absolute Eosinophils 0.1 Absolute Basophils 0.0 Sodium 136.7 L Potassium 4.5 Chloride 104 Carbon Dioxide 22 Anion Gap 11 BUN 9 Creatinine 0.60 Est GFR ( Amer) > 60 Est GFR (Non-Af Amer) > 60 Glucose 79 Uric Acid 5.9 Calcium 9.2 Total Bilirubin 0.5 AST 24 ALT 37 Alkaline Phosphatase 168 H Total Protein 6.8 Albumin 3.3 L Blood Type B POSITIVE Antibody Screen NEGATIVE 11/21/16 08:38 WBC 6.9 RBC 3.93 Hgb 10.3 L Hct 31.5 L MCV 80 MCH 26.3 L MCHC 32.8 RDW 14.3 H Plt Count 236 Seg Neutrophils % Lymphocytes % Monocytes % Eosinophils % Basophils % Absolute Neutrophils Absolute Lymphocytes Absolute Monocytes Absolute Eosinophils Absolute Basophils Sodium Potassium Chloride Carbon Dioxide Anion Gap BUN Creatinine Est GFR ( Amer) Est GFR (Non-Af Amer) Glucose Uric Acid Calcium Total Bilirubin AST ALT Alkaline Phosphatase Total Protein Albumin Blood Type Antibody Screen
[2016-11-21] MEDS: ACETAMINOPHEN WITH CODEINE #3 TABLET PO PRN ×2 (18:15→22:05)
[2016-11-22] MEDS: IBUPROFEN 800 MG TABLET PO SCH ×3 (05:08→17:09)
[2016-11-22] MEDS ORDERED: NIFEDIPINE 30 MG TAB.ER.24 PO ONE ×2 (06:00→17:00)
[2016-11-22] MEDS: FERROUS SULFATE 325 MG TABLET PO SCH ×2 (09:22→17:09)
[2016-11-22] MEDS: LABETALOL HCL 200 MG TABLET PO SCH ×2 (09:22→21:19)
[2016-11-22] MEDS: DOCUSATE SODIUM 100 MG CAPSULE PO SCH ×2 (09:23→17:10)
[2016-11-22] MEDS: SENNOSIDES/DOCUSATE 8.6-50 MG 1 EACH TABLET PO SCH (09:23)
[2016-11-22] MEDS: NIFEDIPINE 30 MG TAB.ER.24 PO SCH (09:24)
--- NOTE | 2016-11-22 10:21 | PDOC PROGRESS REPORT ---
Subjective-OB Subjective: Post Delivery Day: 36 year old. Upset as wanting to be discharged but b/p elevated. Physical Exam (OB) Vital Signs: Temp Pulse Resp BP Pulse Ox 98.1 F 76 16 162/98 H 100 11/22/16 08:37 11/22/16 08:37 11/22/16 08:37 11/22/16 08:37 11/22/16 08:37 Intake & Output 11/21/16 11/22/16 11/23/16 06:59 06:59 06:59 Intake Total 725 Balance 725 Weight 90.9 kg - PIH/Pre-Eclampsia DTR's: 1 + Clonus: Negative Headache: Absent Epigastric Pain: No Visual Changes: No - Lochia Lochia Amount: Scant < 10 ml Lochia Color: Rubra/Red - Abdomen Description: Soft, Round Hernia Present: No Bowel Sounds: Normoactive Flatus Presence: Present Stool: No Fundal Description: Firm, Midline Describe if Not Midline: slightly to right, pt due to void Fundal Height: u/3 - u/4 Objective-Diagnostic Laboratory: 11/21/16 08:38 11/20/16 10:50
[2016-11-23] MEDS: IBUPROFEN 800 MG TABLET PO SCH ×3 (05:30→18:21)
[2016-11-23] MEDS: NIFEDIPINE 30 MG TAB.ER.24 PO SCH (08:39)
[2016-11-23] MEDS: FERROUS SULFATE 325 MG TABLET PO SCH ×2 (09:10→18:20)
[2016-11-23] MEDS: LABETALOL HCL 200 MG TABLET PO SCH ×3 (09:11→22:04)
[2016-11-23] MEDS: DOCUSATE SODIUM 100 MG CAPSULE PO SCH ×2 (09:11→18:21)
--- NOTE | 2016-11-23 10:21 | PDOC PROGRESS REPORT ---
Subjective-OB Subjective: Post Delivery Day: 36 year old. Denies any needs at this time. Denies signs of PIH. Physical Exam (OB) Vital Signs: Temp Pulse Resp BP Pulse Ox 97.9 F 84 18 166/95 H 100 11/23/16 07:35 11/23/16 07:35 11/23/16 07:35 11/23/16 07:35 11/23/16 07:35 Intake & Output 11/22/16 11/23/16 11/24/16 06:59 06:59 06:59 Intake Total 725 900 Balance 725 900 - PIH/Pre-Eclampsia DTR's: 2 + Clonus: Negative Headache: Absent Epigastric Pain: No Visual Changes: No - Lochia Lochia Amount: Scant < 10 ml Lochia Color: Rubra/Red - Abdomen Description: Tender, Soft Hernia Present: No Bowel Sounds: Normoactive Flatus Presence: Present Stool: No Fundal Description: Firm, Midline Describe if Not Midline: slightly to right, pt due to void Fundal Height: u/3 - u/4 Objective-Diagnostic Laboratory: 11/21/16 08:38 11/20/16 10:50
[2016-11-23] MEDS: PRENATAL VITAMIN W-O CA NO5/FE FUMARATE/FA CAPSULE PO SCH (10:40)
[2016-11-23] MEDS: SENNOSIDES/DOCUSATE 8.6-50 MG 1 EACH TABLET PO SCH (10:40)
[2016-11-23 10:41] LABS: ABSOLUTE EOSINOPHILS # (AUTO) 0.3 10^3/uL (0.0-0.6); ABSOLUTE MONOCYTES (AUTO) 0.4 10^3/uL (0.1-1.4); ABSOLUTE NEUT (AUTO) 6.4 10^3/uL (1.7-8.2); BASOPHILS % (AUTO) 0.4 % (0-2); EOSINOPHILS % (AUTO) 3.3 % (0-6); HEMATOCRIT 36.9 % (36.0-47.0); HGB HCT DIFFERENCE -0.9; LYMPHOCYTES % (AUTO) 21.9 % (13-45); MEAN CORPUSCULAR HEMOGLOBIN 26.3 pg (27.0-33.4); MEAN CORPUSCULAR HGB CONC 32.6 g/dL (32.0-36.0); MEAN CORPUSCULAR VOLUME 80 fl (80-97); MONOCYTES % (AUTO) 4.3 % (3-13); RED BLOOD COUNT 4.59 10^6/uL (3.72-5.28); SEGMENTED NEUTROPHILS % (AUTO) 70.1 % (42-78); WHITE BLOOD COUNT 9.1 10^3/uL (4.0-10.5)
[2016-11-23 11:03] LABS: ALANINE AMINOTRANSFERASE 84 U/L (9-52); ALBUMIN 3.7 g/dL (3.5-5.0); ALKALINE PHOSPHATASE 141 U/L (38-126); ANION GAP 11 (5-19); ASPARTATE AMINO TRANSFERASE 102 U/L (14-36); BILIRUBIN,TOTAL 0.6 mg/dL (0.2-1.3); BLOOD UREA NITROGEN 8 mg/dL (7-20); CALCIUM 9.7 mg/dL (8.4-10.2); CARBON DIOXIDE 24 mmol/L (22-30); CHLORIDE 104 mmol/L (98-107); CREATININE RESULT 0.62 mg/dL (0.52-1.25); GLUCOSE 74 mg/dL (75-110); LDH 960 U/L (313-618); POTASSIUM 4.2 mmol/L (3.6-5.0); SODIUM 139.4 mmol/L (137-145); TOTAL PROTEIN 7.1 g/dL (6.3-8.2); URIC ACID 6.3 mg/dL (2.5-7.0)
[2016-11-23 11:23] LABS: APPEARANCE,URINE SLIGHTLY-CLOUDY; BILIRUBIN,URINE NEGATIVE (NEGATIVE); GLUCOSE, URINE NEGATIVE (NEGATIVE); KETONES,URINE NEGATIVE (NEGATIVE); LEUKOCYTE ESTERASE,URINE SMALL (NEGATIVE); NITRITE,URINE NEGATIVE (NEGATIVE); PROTEIN,URINE 30 mg/dL (NEGATIVE); URINE SPECIFIC GRAVITY 1.012; UROBILINOGEN,URINE NEGATIVE mg/dL (<2.0)
--- NOTE | 2016-11-23 13:32 | Delivery Summary ---
Del Sum A-C Datetime Report Generated by CPN: 11/23/2016 13:32 ADMISSION DATA Chief Complaint: Uterine Contractions Indication for Induction: Not Applicable Admission Impression: Active Labor DELIVERY PERSONNEL Delivery Doctor:: Andreina Antonio CNM Labor and Delivery Nurse:: Kirsten Bautista, RNC Labor and Delivery Nurse:: Viviana Mojica RN Thermal Cutter Helper/FISH CUTTER: Rehana Hardwick CNA II MATERNAL INFORMATION Delivery Anesthesia: None Medications After Delivery: Pitocin Bolus-Please Comment; Pitocin Drip 20 Units/1000ml NSS Estimated Blood Loss (ml): 200 Maternal Complications: Other Other Maternal Complications: CHTN Provider Comments: SVDVF over intact perineum, ALVAREZ-nuchal cord reduced, Lt compound hand. 1* periurethral lac not repaired. Cord clamped x 2 cut per FOB, placenta intact via ramesh. EBL 200. Mother and stable, skin to skin intiated. LABOR SUMMARY EDC: 11/28/2016 00:00 No. Babies in Womb: 1 Attempted: No Labor Anesthesia: IV Sedation LABOR INFORMATION Reason for Induction: Not Applicable Onset of Labor: 11/20/2016 03:00 Complete Dilatation: 11/20/2016 11:54 Oxytocin: N/A Group B Beta Strep: positive Antibiotics # of Doses: 1 Antibiotics Time of Last Dose: 1007 Name of Antibiotic Given: penicillin g Steroids Given: None Reason Steroids Not Administered: Not Applicable MEMBRANES Membranes Rupture Method: Artificial Rupture of Membranes: 11/20/2016 12:04 Length of Rupture (hr): 0.05 Amniotic Fluid Color: Clear Amniotic Fluid Amount: Moderate STAGES OF LABOR Stage 1 hr: 8 Stage 1 min: 54 Stage 2 hr: 0 Stage 2 min: 13 Stage 3 hr: 0 Stage 3 min: 5 Total Time in Labor hr: 9 Total Time in Labor min: 12 VAGINAL DELIVERY Episiotomy: None Laceration Extension: First Degree Laceration Type: Periurethral Laceration Repair: No Laceration Repair Note: no repair needed Sponge Count Correct: N/A Sharps Count Correct: N/A CSECTION DELIVERY Primary Indication: N/A CSection Incision: N/A BABY A INFORMATION Delivery Date/Time: 11/20/2016 12:07 Method of Delivery: Vaginal Born in Route : No : N/A Forceps: N/A Vacuum Extraction: N/A Shoulder Dystocia : No PRESENTATION/POSITION BABY A Presentation: Compound Cephalic Presentation: Vertex Vertex Position: Left Occipital Anterior Breech Presentation: N/A PLACENTA INFORMATION BABY A Placenta Delivery Time : 11/20/2016 12:12 Placenta Method of Delivery: Spontaneous Placenta Status: Delivered SCORES BABY A Heart Rate 1 min: >100 bpm Resp Effort 1 min: Good Cry Reflex Irritability 1 min: Cough or Sneeze or Pulls Away Muscle Tone 1 min: Active Motion Color 1 min: Blue/Pale Resuscitation Effort 1 min: Tactile Stimulation SCORE 1 MIN: 8 Heart Rate 5 min: >100 bpm Resp Effort 5 min: Good Cry Reflex Irritability 5 min: Cough or Sneeze or Pulls Away Muscle Tone 5 min: Active Motion Color 5 min: Body [place], Extremities Blue Resuscitation Effort 5 min: N/A SCORE 5 MIN: 9 INFANT INFORMATION BABY A Gestational Age at Delivery: 38.6 Gestational Status: Early Term- 37- 38.6 Weeks Outcome : Liveborn Infant Condition : Stable Infant Sex: Female IDENTIFICATION BABY A Infant Verification Date/Time: 11/20/2016 12:21 ID Band Number: [id number] Mother's Name Verified: Yes RN Verifying Infant: BL ROULUND, RN Additional Verifying Personnel: Kunal [place], [facility] WEIGHT/LENGTH BABY A Infant Birthweight (gm): 2830 Infant Weight (lb): 6 Infant Weight (oz): 4 Length (in): 19.25 Length (cm): 48.90 CORD INFORMATION BABY A No. Cord Vessels: 3 Nuchal Cord : Around Neck x1, Loose Cord Blood Taken: Yes-For Storage (Mom's Blood type +) Suction: Mouth; Nose ASSESSMENT BABY A Infant Complications: None Complications- Other: FENTANYL @ 1123 Physical Findings at Delivery: Within Normal Limits Respirations: Appears Normal Skin to Skin: Yes Sizing Machine Tender/ALS Called : Yes Infant Care By: D Michele [facility] Transferred To: Remains with Mother BABY B INFORMATION : N/A SIGNATURES Assignment: Christine Antonio MD Signature: with User ID: [email or web address] : with User ID: [email or web address] : I was personally available for consultation and serving as supervising physician for the P.
[2016-11-23] MEDS ORDERED: MAGNESIUM SULFATE 4 GM/100 ML RTUPB IV ONE ×2 (13:46→14:45)
[2016-11-23] MEDS ORDERED: LIDOCAINE 2% JELLY 5 ML TUBE ONE (13:47)
[2016-11-23] MEDS ORDERED: LABETALOL HCL 200 MG TABLET ONE ×2 (13:50→22:02)
[2016-11-23] MEDS: RINGERS SOLUTION,LACTATED 1,000 ML IV PRN (14:25)
[2016-11-23] MEDS: MAGNESIUM SULFATE 500 ML IV PRN (14:39)
[2016-11-23 15:29] LABS: ABSOLUTE EOSINOPHILS # (AUTO) 0.3 10^3/uL (0.0-0.6); ABSOLUTE MONOCYTES (AUTO) 0.4 10^3/uL (0.1-1.4); ABSOLUTE NEUT (AUTO) 6.3 10^3/uL (1.7-8.2); BASOPHILS % (AUTO) 0.4 % (0-2); EOSINOPHILS % (AUTO) 3.5 % (0-6); HEMATOCRIT 36.2 % (36.0-47.0); HEMOGLOBIN 11.9 g/dL (12.0-15.5); HGB HCT DIFFERENCE -0.5; LYMPHOCYTES % (AUTO) 22.1 % (13-45); MEAN CORPUSCULAR HEMOGLOBIN 26.3 pg (27.0-33.4); MEAN CORPUSCULAR HGB CONC 32.8 g/dL (32.0-36.0); MEAN CORPUSCULAR VOLUME 80 fl (80-97); MONOCYTES % (AUTO) 3.9 % (3-13); RED BLOOD COUNT 4.51 10^6/uL (3.72-5.28); RED CELL DISTRIBUTION WIDTH 14.4 % (11.5-14.0); SEGMENTED NEUTROPHILS % (AUTO) 70.1 % (42-78)
[2016-11-23 15:47] LABS: ALANINE AMINOTRANSFERASE 103 U/L (9-52); ALBUMIN 3.9 g/dL (3.5-5.0); ALKALINE PHOSPHATASE 160 U/L (38-126); ANION GAP 9 (5-19); ASPARTATE AMINO TRANSFERASE 127 U/L (14-36); BILIRUBIN,TOTAL 0.6 mg/dL (0.2-1.3); BLOOD UREA NITROGEN 9 mg/dL (7-20); CALCIUM 9.9 mg/dL (8.4-10.2); CARBON DIOXIDE 27 mmol/L (22-30); CHLORIDE 103 mmol/L (98-107); GLUCOSE 75 mg/dL (75-110); LDH 1045 U/L (313-618); POTASSIUM 4.1 mmol/L (3.6-5.0); SODIUM 139.2 mmol/L (137-145); TOTAL PROTEIN 7.1 g/dL (6.3-8.2)
--- NOTE | 2016-11-23 16:00 | L&D Flow Sheet ---
LD Flowsheet Datetime Report Generated by CPN: 11/23/2016 16:00 Datetime: 11/23/2016 15:51 NBP Sys/Shawna/Mean (mmHg): 132 (QS system process) : 82 (QS system process) : 101 (QS system process) Pulse: 74 (QS system process) Respirations: 18 (Natali Hugo, RN) Datetime: 11/23/2016 15:21 NBP Sys/Shawna/Mean (mmHg): 131 (QS system process) : 85 (QS system process) : 104 (QS system process) Pulse: 73 (QS system process) Respirations: 18 (Natali Hugo, RN) Datetime: 11/23/2016 15:05 NBP Sys/Shawna/Mean (mmHg): 138 (QS system process) : 82 (QS system process) : 103 (QS system process) Pulse: 76 (QS system process) Respirations: 16 (Natali Hugo, RN) Datetime: 11/23/2016 15:00 Level of Consciousness: Fully Conscious (Natali Arias, RN) DTR's/Clonus: DTRs 2+; No Clonus (Natali Arias, RN) Headache: Denies (Natali Arias, RN) Breath Sounds, Left: Clear and Equal (Nataliomi Arias, RN) Breath Sounds, Right: Clear and Equal (Nataliomi Arias, RN) Nausea/Vomiting: Denies (Natali Arias, RN) RUQ Epigastric Pain: Denies (Natali Arias, RN) Datetime: 11/23/2016 14:35 Stage of : Recovery (Natali Arias RN) NBP Sys/Shawna/Mean (mmHg): 122 (QS system process) : 81 (QS system process) : 94 (QS system process) Pulse: 80 (QS system process) Respirations: 16 (Natali Arias RN) Magnesium/Antihypertensives: Magnesium Sulfate IV (Gm/hr) @ 2grams/hr (Natali Arias RN) Datetime: 11/23/2016 14:33 I/O Interventions: Duval Cath Inserted (Natali Arias, RN) Datetime: 11/23/2016 14:31 NBP Sys/Shawna/Mean (mmHg): 116 (QS system process) : 79 (QS system process) : 94 (QS system process) Pulse: 82 (QS system process) Respirations: 16 (Natali Hugo, RN) Datetime: 11/23/2016 14:25 NBP Sys/Shawna/Mean (mmHg): 124 (QS system process) : 67 (QS system process) : 91 (QS system process) Pulse: 78 (QS system process) Respirations: 18 (Natali Hugo, RN) Datetime: 11/23/2016 14:20 NBP Sys/Shawna/Mean (mmHg): 135 (QS system process) : 71 (QS system process) : 100 (QS system process) Pulse: 73 (QS system process) Respirations: 16 (Natali Hugo, RN) Datetime: 11/23/2016 14:15 NBP Sys/Shawna/Mean (mmHg): 140 (QS system process) : 87 (QS system process) : 108 (QS system process) Pulse: 75 (QS system process) Respirations: 16 (Natali Arias RN) Pain Scale: 0 (Natali Arias RN) Pain Presence: None/Denies (Natali Arias RN) Pain Type: N/A (Natali Arias RN) Datetime: 11/23/2016 14:14 Magnesium/Antihypertensives: Magnesium Sulfate IV Loading (Gm) @ 4grams over 20min (Natali Arias, RN) Datetime: 11/23/2016 14:10 IV/Blood Work: IV Started; IV Infusing per Order; New IV Bag Hung; IV Bag Number @ 1 (Natali Arias RN) Datetime: 11/23/2016 13:54 Stage of : Recovery (Natali Arias RN)
--- NOTE | 2016-11-23 18:00 | L&D Flow Sheet ---
LD Flowsheet Datetime Report Generated by CPN: 11/23/2016 18:00 Datetime: 11/23/2016 17:00 NBP Sys/Shawna/Mean (mmHg): 127 (QS system process) : 86 (QS system process) : 102 (QS system process) Pulse: 83 (QS system process) Respirations: 16 (Natali Arias RN) Level of Consciousness: Fully Conscious (Natali Arias RN) DTR's/Clonus: DTRs 2+; No Clonus (Natali Arias RN) Headache: Denies (Natali Arias RN) Breath Sounds, Left: Clear and Equal (Natali Arias RN) Breath Sounds, Right: Clear and Equal (Natali Arias RN) Datetime: 11/23/2016 16:00 NBP Sys/Shawna/Mean (mmHg): 127 (QS system process) : 79 (QS system process) : 98 (QS system process) Pulse: 74 (QS system process) Respirations: 18 (Natali Arias RN) Pain Scale: 0 (Natali Arias RN) Pain Presence: None/Denies (Natali Arias RN) Pain Type: N/A (Natali Arias RN) Level of Consciousness: Fully Conscious (Natali Arias RN) DTR's/Clonus: DTRs 2+; No Clonus (Natali Arias RN) Headache: Denies (Natali Arias RN) Breath Sounds, Left: Clear and Equal (Natali Arias RN) Breath Sounds, Right: Clear and Equal (Natali Arias RN)
[2016-11-23] MEDS ORDERED: DOCUSATE SODIUM 100 MG CAPSULE ONE (18:17)
[2016-11-23] MEDS ORDERED: IBUPROFEN 800 MG TABLET ONE (18:18)
[2016-11-23] MEDS ORDERED: FERROUS SULFATE 325 MG TABLET PO ONE (18:18)
--- NOTE | 2016-11-23 20:00 | L&D Flow Sheet ---
LD Flowsheet Datetime Report Generated by CPN: 11/23/2016 20:00 Datetime: 11/23/2016 19:00 NBP Sys/Shawna/Mean (mmHg): 129 (QS system process) : 77 (QS system process) : 97 (QS system process) Pulse: 81 (QS system process) Respirations: 16 (Natali Arias RN) Level of Consciousness: Fully Conscious (Natali Arias RN) DTR's/Clonus: DTRs 2+; No Clonus (Natali Arias RN) Headache: Denies (Natali Arias RN) Breath Sounds, Left: Clear and Equal (Natali Arias RN) Breath Sounds, Right: Clear and Equal (Natali Arias RN) Datetime: 11/23/2016 18:00 NBP Sys/Shawna/Mean (mmHg): 126 (QS system process) : 87 (QS system process) : 103 (QS system process) Pulse: 139 (QS system process) Respirations: 18 (Natali Arias RN) Level of Consciousness: Fully Conscious (Natali Arias RN) DTR's/Clonus: DTRs 2+; No Clonus (Natali Arais RN) Headache: Denies (Natali Arias RN) Breath Sounds, Left: Clear and Equal (Natali Arias RN) Breath Sounds, Right: Clear and Equal (Natali Arias RN)
[2016-11-23] MEDS ORDERED: ACETAMINOPHEN WITH CODEINE #3 TABLET ONE (20:50)
[2016-11-23 21:14] LABS: ABSOLUTE EOSINOPHILS # (AUTO) 0.3 10^3/uL (0.0-0.6); ABSOLUTE LYMPHOCYTES (AUTO) 1.8 10^3/uL (0.5-4.7); ABSOLUTE MONOCYTES (AUTO) 0.4 10^3/uL (0.1-1.4); ABSOLUTE NEUT (AUTO) 6.1 10^3/uL (1.7-8.2); BASOPHILS % (AUTO) 0.3 % (0-2); EOSINOPHILS % (AUTO) 3.6 % (0-6); HEMATOCRIT 33.2 % (36.0-47.0); HGB HCT DIFFERENCE -0.2; LYMPHOCYTES % (AUTO) 20.7 % (13-45); MEAN CORPUSCULAR HEMOGLOBIN 26.4 pg (27.0-33.4); MEAN CORPUSCULAR HGB CONC 33.2 g/dL (32.0-36.0); MEAN CORPUSCULAR VOLUME 80 fl (80-97); MONOCYTES % (AUTO) 4.5 % (3-13); RED BLOOD COUNT 4.17 10^6/uL (3.72-5.28); SEGMENTED NEUTROPHILS % (AUTO) 70.9 % (42-78); WHITE BLOOD COUNT 8.7 10^3/uL (4.0-10.5)
[2016-11-23 21:25] LABS: ALANINE AMINOTRANSFERASE 108 U/L (9-52); ALBUMIN 3.3 g/dL (3.5-5.0); ALKALINE PHOSPHATASE 132 U/L (38-126); ANION GAP 12 (5-19); ASPARTATE AMINO TRANSFERASE 128 U/L (14-36); BILIRUBIN,TOTAL 0.4 mg/dL (0.2-1.3); BLOOD UREA NITROGEN 6 mg/dL (7-20); CALCIUM 8.6 mg/dL (8.4-10.2); CARBON DIOXIDE 25 mmol/L (22-30); CHLORIDE 102 mmol/L (98-107); CREATININE RESULT 0.57 mg/dL (0.52-1.25); GLUCOSE 126 mg/dL (75-110); LDH 1009 U/L (313-618); POTASSIUM 3.5 mmol/L (3.6-5.0); SODIUM 138.7 mmol/L (137-145); TOTAL PROTEIN 6.2 g/dL (6.3-8.2); URIC ACID 6.3 mg/dL (2.5-7.0)
--- NOTE | 2016-11-23 22:00 | L&D Flow Sheet ---
LD Flowsheet Datetime Report Generated by CPN: 11/23/2016 22:00 Datetime: 11/23/2016 21:00 NBP Sys/Shawna/Mean (mmHg): 121 (QS system process) : 72 (QS system process) : 92 (QS system process) Pulse: 85 (QS system process) Datetime: 11/23/2016 20:01 Stage of : (Faina Mauro, RN) Pain Scale: 0 (Faina Mauro, RN) Pain Presence: None/Denies (Faina Mauro, RN) Pain Type: N/A (Faina Wade RN) Level of Consciousness: Fully Conscious (Faina Wade RN) DTR's/Clonus: DTRs 2+; No Clonus (Faina Wade RN) Headache: Denies (Faina Wade RN) Breath Sounds, Left: Clear and Equal (Faina Wade RN) Breath Sounds, Right: Clear and Equal (Faina Waed RN) Nausea/Vomiting: Denies (Faina Wade RN) RUQ Epigastric Pain: Denies (Faina Wade RN) IV/Blood Work: IV Infusing per Order (Faina Wade RN) Stage 2 Comments: hot packs and cold packs provided for pt. and engorgement in breasts. Pt. pumping at this time (Faina Wade RN) Datetime: 11/23/2016 20:00 NBP Sys/Shawna/Mean (mmHg): 127 (QS system process) : 69 (QS system process) : 90 (QS system process) Pulse: 80 (QS system process) Temperature (F): 98.5 (Faina Wade RN) Temperature (C): 36.9 (QS system process)
[2016-11-24] MEDS: MAGNESIUM SULFATE 500 ML IV PRN (00:16)
[2016-11-24] MEDS ORDERED: IBUPROFEN 800 MG TABLET ONE ×2 (01:56→15:36)
[2016-11-24] MEDS: RINGERS SOLUTION,LACTATED 1,000 ML IV PRN (02:01)
[2016-11-24] MEDS: IBUPROFEN 800 MG TABLET PO SCH ×3 (02:01→20:02)
[2016-11-24 03:25] LABS: ABSOLUTE EOSINOPHILS # (AUTO) 0.3 10^3/uL (0.0-0.6); ABSOLUTE LYMPHOCYTES (AUTO) 1.8 10^3/uL (0.5-4.7); ABSOLUTE MONOCYTES (AUTO) 0.4 10^3/uL (0.1-1.4); ABSOLUTE NEUT (AUTO) 4.7 10^3/uL (1.7-8.2); BASOPHILS % (AUTO) 0.2 % (0-2); EOSINOPHILS % (AUTO) 4.6 % (0-6); HEMOGLOBIN 11.2 g/dL (12.0-15.5); HGB HCT DIFFERENCE -0.4; LYMPHOCYTES % (AUTO) 24.8 % (13-45); MEAN CORPUSCULAR HEMOGLOBIN 26.4 pg (27.0-33.4); MEAN CORPUSCULAR VOLUME 80 fl (80-97); MONOCYTES % (AUTO) 5.1 % (3-13); RED BLOOD COUNT 4.26 10^6/uL (3.72-5.28); RED CELL DISTRIBUTION WIDTH 14.2 % (11.5-14.0); SEGMENTED NEUTROPHILS % (AUTO) 65.3 % (42-78); WHITE BLOOD COUNT 7.1 10^3/uL (4.0-10.5)
[2016-11-24 03:38] LABS: ALANINE AMINOTRANSFERASE 120 U/L (9-52); ALBUMIN 3.3 g/dL (3.5-5.0); ALKALINE PHOSPHATASE 158 U/L (38-126); ANION GAP 10 (5-19); ASPARTATE AMINO TRANSFERASE 121 U/L (14-36); BILIRUBIN,TOTAL 0.3 mg/dL (0.2-1.3); BLOOD UREA NITROGEN 5 mg/dL (7-20); CALCIUM 7.3 mg/dL (8.4-10.2); CARBON DIOXIDE 24 mmol/L (22-30); CHLORIDE 104 mmol/L (98-107); CREATININE RESULT 0.54 mg/dL (0.52-1.25); GLUCOSE 130 mg/dL (75-110); LDH 1173 U/L (313-618); POTASSIUM 3.4 mmol/L (3.6-5.0); SODIUM 138.3 mmol/L (137-145); TOTAL PROTEIN 6.3 g/dL (6.3-8.2); URIC ACID 5.6 mg/dL (2.5-7.0)
[2016-11-24] MEDS ORDERED: LABETALOL HCL 200 MG TABLET ONE (06:05)
[2016-11-24] MEDS: LABETALOL HCL 200 MG TABLET PO SCH (06:13)
--- NOTE | 2016-11-24 08:00 | L&D Flow Sheet ---
LD Flowsheet Datetime Report Generated by CPN: 11/24/2016 08:00 Datetime: 11/24/2016 07:00 NBP Sys/Shawna/Mean (mmHg): 134 (QS system process) : 75 (QS system process) : 100 (QS system process) Pulse: 81 (QS system process) Magnesium/Antihypertensives: Magnesium Sulfate IV (Gm/hr) @ (Annotations: 2) (Faina Mauro, RN) Datetime: 11/24/2016 06:00 NBP Sys/Shawna/Mean (mmHg): 123 (QS system process) : 74 (QS system process) : 93 (QS system process) Pulse: 96 (QS system process) Magnesium/Antihypertensives: Magnesium Sulfate IV (Gm/hr) @ (Annotations: 2) (Faina Paulaco, RN) Datetime: 11/24/2016 05:00 NBP Sys/Shawna/Mean (mmHg): 152 (QS system process) : 73 (QS system process) : 103 (QS system process) Pulse: 81 (QS system process) Magnesium/Antihypertensives: Magnesium Sulfate IV (Gm/hr) @ (Annotations: 2) (Faina Mauro, RN) Datetime: 11/24/2016 04:00 NBP Sys/Shawna/Mean (mmHg): 128 (QS system process) : 66 (QS system process) : 91 (QS system process) Pulse: 77 (QS system process) Magnesium/Antihypertensives: Magnesium Sulfate IV (Gm/hr) @ (Annotations: 2) (Faina Mauro, RN) Datetime: 11/24/2016 03:17 NBP Sys/Shawna/Mean (mmHg): 126 (QS system process) : 85 (QS system process) : 101 (QS system process) Pulse: 85 (QS system process) Datetime: 11/24/2016 03:00 Magnesium/Antihypertensives: Magnesium Sulfate IV (Gm/hr) @ (Annotations: 2) (Faina Mauro, RN) Datetime: 11/24/2016 02:00 NBP Sys/Shawna/Mean (mmHg): 113 (QS system process) : 67 (QS system process) : 85 (QS system process) Pulse: 74 (QS system process) Level of Consciousness: Fully Conscious (Faina Mauro, RN) DTR's/Clonus: DTRs 2+; No Clonus (Faina Mauro, RN) Headache: Denies (Faina Mauro, RN) Breath Sounds, Left: Clear and Equal (Faina Mauro, RN) Breath Sounds, Right: Clear and Equal (Faina Mauro, RN) Nausea/Vomiting: Denies (Faina Mauro, RN) RUQ Epigastric Pain: Denies (Faina Mauro, RN) Magnesium/Antihypertensives: Magnesium Sulfate IV (Gm/hr) @ (Annotations: 2) (Faina Mauro, RN) Datetime: 11/24/2016 01:00 NBP Sys/Shawna/Mean (mmHg): 132 (QS system process) : 85 (QS system process) : 103 (QS system process) Pulse: 82 (QS system process) Level of Consciousness: Fully Conscious (Faina Mauro, RN) DTR's/Clonus: DTRs 2+; No Clonus (Faina Mauro, RN) Headache: Denies (Faina Mauro, RN) Breath Sounds, Left: Clear and Equal (Faina Mauro, RN) Breath Sounds, Right: Clear and Equal (Faina Mauro, RN) Nausea/Vomiting: Denies (Faina Mauro, RN) RUQ Epigastric Pain: Denies (Faina Mauro, RN) Magnesium/Antihypertensives: Magnesium Sulfate IV (Gm/hr) @ (Annotations: 2) (Faina Mauro, RN) Datetime: 11/24/2016 00:30 Stage of : Recovery (Karla Kossmann, RN) Datetime: 11/24/2016 00:16 Magnesium/Antihypertensives: Magnesium Sulfate IV (Gm/hr) @ (Annotations: 2; new magnesium 50gm/500 hung) (Faina Mauro, RN) Datetime: 11/24/2016 00:00 NBP Sys/Shawna/Mean (mmHg): 117 (QS system process) : 62 (QS system process) : 82 (QS system process) Pulse: 75 (QS system process) Level of Consciousness: Fully Conscious (Faina Mauro, RN) DTR's/Clonus: DTRs 2+; No Clonus (Faina Mauro, RN) Headache: Denies (Faina Mauro, RN) Breath Sounds, Left: Clear and Equal (Faina Mauro, RN) Breath Sounds, Right: Clear and Equal (Faina Mauro, RN) Nausea/Vomiting: Denies (Faina Mauro, RN) RUQ Epigastric Pain: Denies (Faina Mauro, RN) Magnesium/Antihypertensives: Magnesium Sulfate IV (Gm/hr) @ (Annotations: 2) (Faina Mauro, RN) Datetime: 11/23/2016 23:00 NBP Sys/Shawna/Mean (mmHg): 117 (QS system process) : 60 (QS system process) : 83 (QS system process) Pulse: 76 (QS system process) Level of Consciousness: Fully Conscious (Faina Mauro, RN) DTR's/Clonus: DTRs 2+; No Clonus (Faina Mauro, RN) Headache: Denies (Faina Mauro, RN) Breath Sounds, Left: Clear and Equal (Faina Mauro, RN) Breath Sounds, Right: Clear and Equal (Faina Mauro, RN) Nausea/Vomiting: Denies (Faina Mauro, RN) RUQ Epigastric Pain: Denies (Faina Mauro, RN) Magnesium/Antihypertensives: Magnesium Sulfate IV (Gm/hr) @ (Annotations: 2) (Faina Mauro, RN) Datetime: 11/23/2016 22:04 Bedside Blood Glucose: 0 (Faina Wade RN) Pain Presence: None/Denies (Annotations: pt. denies pain at this time, states that her BELLO has subsided with medication) (Faina Mauro, RN) Datetime: 11/23/2016 22:00 NBP Sys/Shawna/Mean (mmHg): 112 (QS system process) : 71 (QS system process) : 86 (QS system process) Pulse: 80 (QS system process) Level of Consciousness: Fully Conscious (Faina Wade RN) DTR's/Clonus: DTRs 2+; No Clonus (Faina Wade, RN) Headache: Generalized (Faina Paulaco, RN) Breath Sounds, Left: Clear and Equal (Faina Wade, RN) Breath Sounds, Right: Clear and Equal (Faina Wade RN) Nausea/Vomiting: Denies (Faina Wade RN) RUQ Epigastric Pain: Denies (Faina Wade RN) Magnesium/Antihypertensives: Magnesium Sulfate IV (Gm/hr) @ (Annotations: 2) (Faina Wade RN)
[2016-11-24] MEDS ORDERED: PRENATAL VITAMIN W-O CA NO5/FE FUMARATE/FA CAPSULE ONE (09:56)
[2016-11-24] MEDS ORDERED: SENNOSIDES/DOCUSATE 8.6-50 MG 1 EACH TABLET ONE (09:57)
[2016-11-24] MEDS ORDERED: FERROUS SULFATE 325 MG TABLET PO ONE (09:57)
[2016-11-24] MEDS ORDERED: DOCUSATE SODIUM 100 MG CAPSULE ONE (09:57)
[2016-11-24 09:58] LABS: ABSOLUTE EOSINOPHILS # (AUTO) 0.3 10^3/uL (0.0-0.6); ABSOLUTE LYMPHOCYTES (AUTO) 1.8 10^3/uL (0.5-4.7); ABSOLUTE MONOCYTES (AUTO) 0.3 10^3/uL (0.1-1.4); ABSOLUTE NEUT (AUTO) 4.7 10^3/uL (1.7-8.2); BASOPHILS % (AUTO) 0.2 % (0-2); HEMATOCRIT 33.6 % (36.0-47.0); HEMOGLOBIN 10.9 g/dL (12.0-15.5); HGB HCT DIFFERENCE -0.9; LYMPHOCYTES % (AUTO) 24.9 % (13-45); MEAN CORPUSCULAR HGB CONC 32.5 g/dL (32.0-36.0); MEAN CORPUSCULAR VOLUME 80 fl (80-97); MONOCYTES % (AUTO) 4.6 % (3-13); RED CELL DISTRIBUTION WIDTH 13.9 % (11.5-14.0); SEGMENTED NEUTROPHILS % (AUTO) 66.3 % (42-78); WHITE BLOOD COUNT 7.1 10^3/uL (4.0-10.5)
[2016-11-24] MEDS ORDERED: NIFEDIPINE 30 MG TAB.ER.24 PO ONE (09:58)
--- NOTE | 2016-11-24 10:00 | L&D Flow Sheet ---
LD Flowsheet Datetime Report Generated by CPN: 11/24/2016 10:00 Datetime: 11/24/2016 09:00 Stage of : Recovery (Nery Ryan RN) NBP Sys/Shawna/Mean (mmHg): 123 (QS system process) : 78 (QS system process) : 96 (QS system process) Pulse: 75 (QS system process) Respirations: 18 (Nery Ryan RN) Pain Scale: 0 (Nery Ryan RN) Pain Presence: None/Denies (Nery Ryan RN) Pain Type: N/A (Nery Ryan RN) Pain Relief Measures: Comfort Measures (Nery Ryan RN) Level of Consciousness: Fully Conscious (Nery Ryan RN) DTR's/Clonus: DTRs 1+; No Clonus (Nery Ryan RN) Headache: Denies (Nery Ryan RN) Breath Sounds, Left: Clear and Equal (Nery Ryan RN) Breath Sounds, Right: Clear and Equal (Nery Ryan RN) Nausea/Vomiting: Denies (Nery Ryan RN) RUQ Epigastric Pain: Denies (Nery Ryan RN) Magnesium/Antihypertensives: Magnesium Sulfate IV (Gm/hr) @ (Annotations: 2) (Nery Ryan RN) Datetime: 11/24/2016 08:17 Stage of : Recovery (Nery Ryan RN) Communication: RN at Bedside; Provider at Bedside (Nery Ryan RN) Provider Notified (Name): DR AKERS @ (Nery Ryan RN) Notification Reason: Status Update (Nery Ryan RN) Communication Comments: DR AKERS @ - STRESSED IMPORTANCE OF FOLLOWING THE PLAN OF CARE, REMAINING IN THE HOSPITAL FOR 12-24 HRS AFTER MAGNESIUM D/C. PT TEARFUL, DISAPPOINTED AND WANTS TO GO HOME. (Nery Ryan RN) Datetime: 11/24/2016 08:00 Stage of : Recovery (Nery Ryan RN) NBP Sys/Shawna/Mean (mmHg): 118 (QS system process) : 77 (QS system process) : 93 (QS system process) Pulse: 77 (QS system process) Respirations: 18 (Nery Ryan RN) Pain Scale: 0 (Nery Ryan RN) Pain Presence: None/Denies (Nery Ryan RN) Pain Type: N/A (Nery Ryan RN) Pain Relief Measures: Comfort Measures (Nery Ryan RN) Level of Consciousness: Fully Conscious (Nery Ryan RN) DTR's/Clonus: DTRs 1+; No Clonus (Nery Ryan RN) Headache: Denies (Nery Ryan, PH[facility]) Nausea/Vomiting: Denies (Nery Ryan, PH[facility]) RUQ Epigastric Pain: Denies (Nery Ryan, PH[facility]) Magnesium/Antihypertensives: Magnesium Sulfate IV (Gm/hr) @ (Annotations: 2) (Nery Ryan RN) IV/Blood Work: IV Infusing per Order (Nery Ryan, PH[facility]) Oxygen Method: Room Air (Nery Ryan RN) Patient Position/Activity: High Fowlers (Nery Ryan, PHUC) Comfort Measures: Family Support (Nery Ryan, PHUC) Instructional Method: Verbal; Patient Instructed; Family/Support Person Instructed; Verbalized Understanding (Nery Ryan, PHUC) Plan of Care: Plan of Care Discussed; Gestational Hypertension/Preeclampsia/Eclampsia (Nery Ryan, PHUC) Unit Routine: Medications (Nery Ryan, PHUC) Pain Management: Pain Scale/Goals; Comfort Measures (Nery Ryan, PHUC) Medications: Magnesium Sulfate (Nery Ryan RN) Communication: RN at Bedside (Nery Ryan RN)
[2016-11-24] MEDS: NIFEDIPINE 30 MG TAB.ER.24 PO SCH (10:03)
[2016-11-24] MEDS: DOCUSATE SODIUM 100 MG CAPSULE PO SCH ×2 (10:03→18:05)
[2016-11-24] MEDS: PRENATAL VITAMIN W-O CA NO5/FE FUMARATE/FA CAPSULE PO SCH (10:04)
[2016-11-24] MEDS: SENNOSIDES/DOCUSATE 8.6-50 MG 1 EACH TABLET PO SCH (10:05)
[2016-11-24] MEDS: FERROUS SULFATE 325 MG TABLET PO SCH ×2 (10:05→18:05)
[2016-11-24 10:16] LABS: ALANINE AMINOTRANSFERASE 126 U/L (9-52); ALBUMIN 3.4 g/dL (3.5-5.0); ALKALINE PHOSPHATASE 156 U/L (38-126); ANION GAP 10 (5-19); ASPARTATE AMINO TRANSFERASE 104 U/L (14-36); BILIRUBIN,TOTAL 0.3 mg/dL (0.2-1.3); BLOOD UREA NITROGEN 6 mg/dL (7-20); CALCIUM 7.2 mg/dL (8.4-10.2); CARBON DIOXIDE 22 mmol/L (22-30); CHLORIDE 105 mmol/L (98-107); CREATININE RESULT 0.56 mg/dL (0.52-1.25); GLUCOSE 98 mg/dL (75-110); LDH 1186 U/L (313-618); POTASSIUM 4.3 mmol/L (3.6-5.0); TOTAL PROTEIN 6.5 g/dL (6.3-8.2); URIC ACID 5.5 mg/dL (2.5-7.0)
--- NOTE | 2016-11-24 12:00 | L&D Flow Sheet ---
LD Flowsheet Datetime Report Generated by CPN: 11/24/2016 12:00 Datetime: 11/24/2016 11:01 NBP Sys/Shawna/Mean (mmHg): 132 (QS system process) : 91 (QS system process) : 107 (QS system process) Pulse: 75 (QS system process) Datetime: 11/24/2016 10:00 NBP Sys/Shawna/Mean (mmHg): 133 (QS system process) : 82 (QS system process) : 102 (QS system process) Pulse: 74 (QS system process) Level of Consciousness: Fully Conscious (Nery Ryan RN) DTR's/Clonus: DTRs 1+; No Clonus (Nery Ryan RN) Headache: Denies (Nery Ryan RN) Nausea/Vomiting: Denies (Nery Ryan RN) RUQ Epigastric Pain: Denies (Nery Ryan RN)
--- NOTE | 2016-11-24 14:00 | L&D Flow Sheet ---
LD Flowsheet Datetime Report Generated by CPN: 11/24/2016 14:00 Datetime: 11/24/2016 13:00 NBP Sys/Shawna/Mean (mmHg): 142 (QS system process) : 83 (QS system process) : 108 (QS system process) Pulse: 68 (QS system process) Level of Consciousness: Fully Conscious (Natali Arias RN) DTR's/Clonus: DTRs 2+; No Clonus (Natali Arias RN) Headache: Denies (Natali Arias RN) Breath Sounds, Left: Clear and Equal (Natali Arias RN) Breath Sounds, Right: Clear and Equal (Natali Arias RN) Datetime: 11/24/2016 12:00 NBP Sys/Shawna/Mean (mmHg): 131 (QS system process) : 83 (QS system process) : 103 (QS system process) Pulse: 74 (QS system process)
--- NOTE | 2016-11-24 19:00 | L&D Flow Sheet ---
LD Flowsheet Datetime Report Generated by CPN: 11/24/2016 19:00 Datetime: 11/24/2016 17:47 Stage of : Recovery (Nery Ryan, RN) Datetime: 11/24/2016 17:00 Stage of : Recovery (Nery Ryan RN) Pain Scale: 1 (Nery Ryan RN) Pain Presence: Constant (Nery Ryan RN) Pain Type: Ache (Nery Ryan RN) Pain Location: BREASTS ENGORGED (Nery Ryan RN) Pain Goal: 1 (Nery Ryan RN) Pain Relief Measures: Comfort Measures (Nery Ryan RN) Datetime: 11/24/2016 15:55 Stage of : Recovery (Nery Ryan RN) Pain Scale: 2 (Nery Ryan RN) Pain Presence: Constant (Nery Ryan RN) Pain Type: Ache (Nery Ryan RN) Pain Location: BREAST ENGORGEMENT (Nery Ryan RN) Pain Goal: 1 (Nery Ryan RN) Pain Relief Measures: Pain Medication Given; Comfort Measures (Nery Ryna RN) Datetime: 11/24/2016 15:30 Stage of : Recovery (Nery Ryan RN) Respirations: 18 (Nery Ryan RN) Pain Scale: 2 (Nery Ryan RN) Pain Presence: Constant (Nery Ryan RN) Pain Type: Ache (Nery Ryan RN) Pain Location: BREASTS ENGORGED- HOT PACKS APPLIED BY Grazyna SOTO RN (Nery Ryan RN) Datetime: 11/24/2016 15:00 NBP Sys/Shawna/Mean (mmHg): 135 (QS system process) : 83 (QS system process) : 106 (QS system process) Pulse: 78 (QS system process) Datetime: 11/24/2016 14:00 Stage of : Recovery (Nery Ryan RN) NBP Sys/Shawna/Mean (mmHg): 149 (QS system process) : 86 (QS system process) : 112 (QS system process) Pulse: 83 (QS system process) Respirations: 18 (Nery Ryan RN) Pain Scale: 0 (Nery Ryan RN) Pain Presence: None/Denies (Nery Ryan RN) Pain Type: N/A (Nery Ryan RN) Pain Relief Measures: Comfort Measures (Nery Ryan RN) Datetime: 11/24/2016 13:00 Stage of : Recovery (Nery Ryan RN) NBP Sys/Shawna/Mean (mmHg): 142 (QS system process) : 83 (QS system process) : 108 (QS system process) Pulse: 68 (QS system process) Respirations: 18 (Nery Ryan RN) Pain Scale: 0 (Nery Ryan RN) Pain Presence: None/Denies (Nery Ryan RN) Pain Type: N/A (Nery Ryan RN) Pain Relief Measures: Comfort Measures (Nery Ryan RN) Level of Consciousness: Fully Conscious (Natali Arias RN) DTR's/Clonus: DTRs 2+; No Clonus (Natali Arias RN) Headache: Denies (Natali Arias RN) Breath Sounds, Left: Clear and Equal (Natali Arias RN) Breath Sounds, Right: Clear and Equal (Natali Arias RN) Nausea/Vomiting: Denies (Nery Ryan RN) RUQ Epigastric Pain: Denies (Nery Ryan RN) Datetime: 11/24/2016 12:00 Stage of : Recovery (Nery Ryan RN) NBP Sys/Shawna/Mean (mmHg): 131 (QS system process) : 83 (QS system process) : 103 (QS system process) Pulse: 74 (QS system process) Respirations: 18 (Nery Ryan RN) Pain Scale: 0 (Nery Ryan RN) Pain Presence: None/Denies (Nery Ryan RN) Pain Type: N/A (Nery Ryan RN) Pain Relief Measures: Comfort Measures (Nery Ryan RN) Level of Consciousness: Fully Conscious (Nery Rayn RN) DTR's/Clonus: DTRs 1+; No Clonus (Nery Ryan RN) Headache: Denies (Nery Ryan RN) Nausea/Vomiting: Denies (Nery Ryan RN) RUQ Epigastric Pain: Denies (Nery Ryan RN) Datetime: 11/24/2016 11:01 Stage of : Recovery (Nery Ryan RN) NBP Sys/Shawna/Mean (mmHg): 132 (QS system process) : 91 (QS system process) : 107 (QS system process) Pulse: 75 (QS system process) Respirations: 18 (Nery Ryan RN) Pain Scale: 0 (Nery Ryan, [facility]) Pain Presence: None/Denies (Nery Ryan, RN) Pain Type: N/A (Nery Ryan, [facility]) Pain Relief Measures: Comfort Measures (Nery Ryan, [facility]) Datetime: 11/24/2016 11:00 Level of Consciousness: Fully Conscious (Nery Ryan, [facility]) DTR's/Clonus: DTRs 1+; DTRs 3+ (Nery Ryan, RN) Headache: Denies (Nery Ryan, RN) Breath Sounds, Left: Clear and Equal (Nery Ryan, RN) Breath Sounds, Right: Clear and Equal (Nery Ryan, RN) Nausea/Vomiting: Denies (Nery Ryan, RN) RUQ Epigastric Pain: Denies (Nery Ryan, RN) Datetime: 11/24/2016 10:00 Stage of : Recovery (Nery Ryan RN) NBP Sys/Shawna/Mean (mmHg): 133 (QS system process) : 82 (QS system process) : 102 (QS system process) Pulse: 74 (QS system process) Respirations: 18 (Nery Ryan RN) Temperature (F): 98.0 (Nery Ryan RN) Temperature (C): 36.7 (QS system process) Temperature Route: Oral (Nery Ryan RN) Pain Scale: 0 (Nery Ryan RN) Pain Presence: None/Denies (Nery Ryan RN) Pain Type: N/A (Nery Ryan RN) Pain Relief Measures: Comfort Measures (Nery Ryan RN) Level of Consciousness: Fully Conscious (Nery Ryan RN) DTR's/Clonus: DTRs 1+; No Clonus (Nery Ryan RN) Headache: Denies (Nery Ryan RN) Nausea/Vomiting: Denies (Nery Ryan RN) RUQ Epigastric Pain: Denies (Nery Ryan RN) Datetime: 11/24/2016 09:00 Stage of : Recovery (Nery Ryan RN) NBP Sys/Shawna/Mean (mmHg): 123 (QS system process) : 78 (QS system process) : 96 (QS system process) Pulse: 75 (QS system process) Respirations: 18 (Nery Ryan RN) Pain Scale: 0 (Nery Ryan RN) Pain Presence: None/Denies (Nery Ryan RN) Pain Type: N/A (Nery Ryan RN) Pain Relief Measures: Comfort Measures (Nery Ryan RN) Level of Consciousness: Fully Conscious (Nery Ryan RN) DTR's/Clonus: DTRs 1+; No Clonus (Nery Ryan RN) Headache: Denies (Nery Ryan RN) Breath Sounds, Left: Clear and Equal (Nery Ryan RN) Breath Sounds, Right: Clear and Equal (Nery Ryan RN) Nausea/Vomiting: Denies (Nery Ryan RN) RUQ Epigastric Pain: Denies (Nery Ryan RN) Magnesium/Antihypertensives: Magnesium Sulfate IV (Gm/hr) @ (Annotations: 2) (Nrey Ryan RN) Datetime: 11/24/2016 08:17 Stage of : Recovery (Nery Ryan RN) Communication: RN at Bedside; Provider at Bedside (Nery Ryan RN) Provider Notified (Name): DR AKERS @ [facility] (Nery Ryan, [facility]) Notification Reason: Status Update (Nery Ryan RN) Communication Comments: DR AKERS @ BS- STRESSED IMPORTANCE OF FOLLOWING THE PLAN OF CARE, REMAINING IN THE HOSPITAL FOR 12-24 HRS AFTER MAGNESIUM D/C. PT TEARFUL, DISAPPOINTED AND WANTS TO GO HOME. (Nery Ryan RN) Datetime: 11/24/2016 08:00 Stage of : Recovery (Nery Ryan RN) NBP Sys/Shawna/Mean (mmHg): 118 (QS system process) : 77 (QS system process) : 93 (QS system process) Pulse: 77 (QS system process) Respirations: 18 (Nery Ryan RN) Pain Scale: 0 (Nery Ryan RN) Pain Presence: None/Denies (Nery Ryan RN) Pain Type: N/A (Nery Ryan RN) Pain Relief Measures: Comfort Measures (Neyr Ryan RN) Level of Consciousness: Fully Conscious (Nery Ryan RN) DTR's/Clonus: DTRs 1+; No Clonus (Nery Ryan, [facility]) Headache: Denies (Nery Ryan, [facility]) Nausea/Vomiting: Denies (Nery Ryan, [facility]) RUQ Epigastric Pain: Denies (Nery Ryan, RN) Magnesium/Antihypertensives: Magnesium Sulfate IV (Gm/hr) @ (Annotations: 2) (Nery Ryan, [facility]) IV/Blood Work: IV Infusing per Order (Nery Ryan, [facility]) Oxygen Method: Room Air (Nery Ryan RN) Patient Position/Activity: High Fowlers (Nery Ryan, [facility]) Comfort Measures: Family Support (Nery Ryan, [facility]) Instructional Method: Verbal; Patient Instructed; Family/Support Person Instructed; Verbalized Understanding (Nery Ryan RN) Plan of Care: Plan of Care Discussed; Gestational Hypertension/Preeclampsia/Eclampsia (Nery Ryan RN) Unit Routine: Medications (Nery Ryan RN) Pain Management: Pain Scale/Goals; Comfort Measures (Nery Ryan RN) Medications: Magnesium Sulfate (Nery Ryan RN) Communication: RN at Bedside (Nery Ryan RN) Datetime: 11/24/2016 07:00 NBP Sys/Shawna/Mean (mmHg): 134 (QS system process) : 75 (QS system process) : 100 (QS system process) Pulse: 81 (QS system process) Magnesium/Antihypertensives: Magnesium Sulfate IV (Gm/hr) @ (Annotations: 2) (Faina Wade RN)
[2016-11-24 20:17] LABS: ABSOLUTE EOSINOPHILS # (AUTO) 0.3 10^3/uL (0.0-0.6); ABSOLUTE LYMPHOCYTES (AUTO) 2.1 10^3/uL (0.5-4.7); ABSOLUTE MONOCYTES (AUTO) 0.5 10^3/uL (0.1-1.4); ABSOLUTE NEUT (AUTO) 5.8 10^3/uL (1.7-8.2); BASOPHILS % (AUTO) 0.3 % (0-2); EOSINOPHILS % (AUTO) 3.7 % (0-6); HEMATOCRIT 35.4 % (36.0-47.0); HEMOGLOBIN 11.5 g/dL (12.0-15.5); HGB HCT DIFFERENCE -0.9; LYMPHOCYTES % (AUTO) 24.4 % (13-45); MEAN CORPUSCULAR HEMOGLOBIN 26.1 pg (27.0-33.4); MEAN CORPUSCULAR HGB CONC 32.4 g/dL (32.0-36.0); MEAN CORPUSCULAR VOLUME 81 fl (80-97); MONOCYTES % (AUTO) 5.2 % (3-13); RED CELL DISTRIBUTION WIDTH 14.5 % (11.5-14.0); SEGMENTED NEUTROPHILS % (AUTO) 66.4 % (42-78); WHITE BLOOD COUNT 8.7 10^3/uL (4.0-10.5)
[2016-11-24 20:43] LABS: ALANINE AMINOTRANSFERASE 120 U/L (9-52); ALBUMIN 3.9 g/dL (3.5-5.0); ALKALINE PHOSPHATASE 161 U/L (38-126); ANION GAP 9 (5-19); ASPARTATE AMINO TRANSFERASE 84 U/L (14-36); BILIRUBIN,TOTAL 0.5 mg/dL (0.2-1.3); BLOOD UREA NITROGEN 7 mg/dL (7-20); CALCIUM 8.1 mg/dL (8.4-10.2); CARBON DIOXIDE 27 mmol/L (22-30); CHLORIDE 106 mmol/L (98-107); CREATININE RESULT 0.59 mg/dL (0.52-1.25); GLUCOSE 79 mg/dL (75-110); LDH 1223 U/L (313-618); POTASSIUM 4.2 mmol/L (3.6-5.0); SODIUM 142.3 mmol/L (137-145); TOTAL PROTEIN 7.2 g/dL (6.3-8.2); URIC ACID 5.7 mg/dL (2.5-7.0)
[2016-11-25] MEDS: IBUPROFEN 800 MG TABLET PO SCH ×2 (01:01→10:00)
--- NOTE | 2016-11-25 06:00 | L&D General Admission ---
General Admit Datetime Report Generated by CPN: 11/25/2016 06:00 INFORMATION Patient Age: 36 (10/10/2016 16:43:QS system process) EDC: 11/28/2016 00:00 (10/10/2016 16:48:Lauren Lopez RN) : 4 (10/10/2016 16:48:Lauren Lopez RN) Para: 2 (11/16/2016 07:39:Samanta Padron RN) Term: 2 (10/10/2016 16:48:Ness Valdez RN) : 0 (10/10/2016 16:48:Ness Valdez RN) Spontaneous Abortions: 0 (10/10/2016 16:48:Ness Valdez RN) Induced Abortions: 0 (10/10/2016 16:48:Ness Valdez RN) Livin (10/10/2016 16:48:Ness Valdez RN) Cesareans: 0 (10/10/2016 16:48:Ness Valdez RN) VBACs: 0 (10/10/2016 16:48:Ness Valdez RN) Ectopic: 0 (10/10/2016 16:48:Ness Valdez RN) Multiple Births: 0 (10/10/2016 16:48:Ness Valdez RN) Baby, Number in Womb: 1 (11/16/2016 07:39:Samanta Padron RN) CARE Primary [facility] (10/10/2016 16:48:Lauren Lopez RN) Month of 1st Visit: march (10/10/2016 16:48:KALEY Ludwig) Adequate Care: Yes (10/10/2016 16:48:KALEY Ludwig) Prepregnancy Weight (lb): 183 (10/10/2016 16:48:KALEY Ludwig) Prepregnancy Weight (kg): 83.2 (10/10/2016 16:48:QS system process) Height (in): 65 (11/20/2016 10:25:QS system process) ALLERGIES Medication Allergy: No (10/10/2016 16:48:Ness Valdez RN) Medication Allergies: No Known Allergies (11/16/2016) (11/16/2016 05:27:QS system process) Latex Allergy: No Latex Allergies (10/10/2016 16:48:Ness Valdez RN) Food Allergies: denies (10/10/2016 16:48:Karla Treviño RN) Environmental Allergies: denies (10/10/2016 16:48:Karla Treviño RN) COMMUNICATION Primary Language: Lao (10/10/2016 16:48:Ness Valdez RN) Medical Tx Preferred Language: Lao (10/10/2016 16:48:Ness Valdez RN) Communication Barrier(s): None (10/10/2016 16:48:Karla Treviño RN) DEMOGRAPHICS Address: [place] [address] (10/10/2016 16:43:QS system process) Zipcode: [address] (10/10/2016 16:43:QS system process) Home (10/10/2016 16:43:QS system process) N: [phone] (10/10/2016 16:43:QS system process) Next of Kin Name: BILL MCFADDEN (10/10/2016 16:43:QS system process) Next of Kin (10/10/2016 16:43:QS system process) Next of Kin Relationship: MO (10/10/2016 16:43:QS system process) Date of : 1980 (10/10/2016 16:43:QS system process) Marital Status: (10/10/2016 16:43:QS system process) Sex: Female (10/10/2016 16:43:QS system process) Race: (10/10/2016 16:43:QS system process) Ethnicity: Non- or (10/10/2016 16:43:QS system process) Jainism: Other (10/10/2016 16:43:QS system process) DRUG AND ALCOHOL USE Alcohol: No (10/10/2016 16:48:Ness Valdez RN) Cigarettes: Never Smoker. [phone] (10/10/2016 16:48:Ness Valdez RN) Marijuana: No (10/10/2016 16:48:Ness Valdez RN) Cocaine: No (10/10/2016 16:48:Ness Valdez RN) Other Illicit Drugs: No (10/10/2016 16:48:Ness Valdez RN) VACCINE HISTORY Influenza Vaccine: No (10/10/2016 16:48:Ness Valdez RN) Pneumococcal Vaccine: No (10/10/2016 16:48:Ness Valdez RN) Tetanus Vaccine: Yes (10/10/2016 16:48:Ness Valdez RN) Tetanus Date: 09/11 (10/10/2016 16:48:Ness Valdez RN) Tdap Vaccine: Yes (10/10/2016 16:48:Ness Valdez RN) Tdap Date: 09/11 (10/10/2016 16:48:Ness Valdez RN) Hepatitis B Vaccine: Yes (10/10/2016 16:48:Ness Valdez RN) Supervisor Securities Vault: Other (10/10/2016 16:48:KALEY uLdwig) Feeding Preference: Both (10/10/2016 16:48:Karla Treviño RN) Benefit of Breast Feed Discussed: Yes (10/10/2016 16:48:Karla Treviño RN) Circumcision: N/A (10/10/2016 16:48:Karla Treviño RN) Classes Attended: No (10/10/2016 16:48:Karla Treviño RN) Tubal Ligation: No (10/10/2016 16:48:Karla Treviño RN) Tubal Authorization Signed: N/A (10/10/2016 16:48:Karla Treviño RN) Consent: N/A (10/10/2016 16:48:Karla Treviño RN) Consent Signed: N/A (10/10/2016 16:48:Karla Treviño RN) Pain Management Plans: Natural (10/10/2016 16:48:Karla Treviño RN) Plans for Labor and Delivery: None (10/10/2016 16:48:Karla Treviño RN) Support Person: Salty (10/10/2016 16:48:Karla Treviño RN) Support Person Relationship: (10/10/2016 16:48:Karla Treviño RN) Cultural/Spritual Practice: No (10/10/2016 16:48:Karla Treviño RN) Spir/Cult Dietary Needs: No (10/10/2016 16:48:Karla Treviño RN) LIVING SITUATION/DISCHARGE PLAN Living Arrangements: House (10/10/2016 16:48:Karla Treviño RN) Adequate Access to:: Electric; Heat; Refrigeration; Plumbing/Running water; Phone; Transportation (10/10/2016 16:48:Karla Treviño RN) WIC Program: Yes (10/10/2016 16:48:Karla Treviño RN) Discharge Puddler Pile Driving Person: Salty (10/10/2016 16:48:Karla Treviño RN) Person to Help after Discharge: Salty (10/10/2016 16:48:Karla Treviño RN) Currently Using Commun Resources: Yes (10/10/2016 16:48:Karla Treviño RN) Specify Current Resource Used: medicaid (10/10/2016 16:48:Karla Treviño RN) Outside Agency/Aids Social Worker: No (10/10/2016 16:48:Karla Treviño RN) Car Seat for Discharge: Yes (10/10/2016 16:48:Karla Treviño RN) Adoption Requested: No (10/10/2016 16:48:Karla Treviño RN) Pt Contact w/ Post : N/A (10/10/2016 16:48:Karla Treviño RN) LABS Blood Type: B Positive (10/10/2016 16:48:Lauren Lopez RN) Antibody Screen: neg (10/10/2016 16:48:Lauren Lopez RN) Hemoglobin: 11.5 L (11/24/2016 20:05:QS system process) Hematocrit: 35.4 L (11/24/2016 20:05:QS system process) MCV: 81 (11/24/2016 20:05:QS system process) Group Beta Strep: positive (10/10/2016 16:48:Karla Treviño RN) Gonorrhea: Negative (10/10/2016 16:48:Ness Valdez RN) Chlamydia: Negative (10/10/2016 16:48:Ness Valdez RN) RPR/VDRL: Nonreactive (10/10/2016 16:48:Lauren Lopez RN) Hepatitis B: Negative (10/10/2016 16:48:Lauren Lopez RN) Rubella: Immune (10/10/2016 16:48:Lauren Lopez RN) OB/PREVIOUS HISTORY Previous Procedures: Ultrasound; NST (10/10/2016 16:48:Karla Treviño RN) Current Procedures: Ultrasound; NST (10/10/2016 16:48:Karla Treviño RN) History of Previous : No (10/10/2016 16:48:Karla Treviño RN) History of Gestational Diabetes: No (10/10/2016 16:48:Karla Treviño RN) History of PIH: No (10/10/2016 16:48:Karla Treviño RN) History of Incompetent Cervix: No (10/10/2016 16:48:Karla Treviño RN) History of Placenta Previa/Abrup: No (10/10/2016 16:48:Karla Treviño RN) History of Macrosomia: No (10/10/2016 16:48:Karla Treviño RN) History of IUGR: No (10/10/2016 16:48:Karla Treviño RN) History of Hemorrhage: No (10/10/2016 16:48:Karla Treviño RN) History of Loss/Stillborn: No (10/10/2016 16:48:Karla Treviño RN) History of : No (10/10/2016 16:48:Karla Treviño RN) History of D (Rh) Sensitization: No (10/10/2016 16:48:Karla Treviño RN) History Recurrent Loss/Stillborn: No (10/10/2016 16:48:Karla Treviño RN) History Depression/PP Depression: No (10/10/2016 16:48:Karla Treviño RN) History of Uterine Anomaly/VIDA: No (10/10/2016 16:48:Karla Treviño RN) History of Infertility: No (10/10/2016 16:48:Karla Treviño RN) History of ART Treatment: No (10/10/2016 16:48:Karla Treviño RN) History of VIDA: No (10/10/2016 16:48:Karla Treviño RN) Comments Obstetrical History: g1-1996, 40 weeks, vaginal delivery, female, 6lb 8 oz, no epidural, @ [facility] g2-2000, 40 weeks, vaginal delivery, male, 6lb 13oz, no epidural, @ [employer] g3-2004, 10 weeks, EAB g4- current , CHTN on labetalol, Obesity, AMA, anemia, uterine fibroid (10/10/2016 16:48:Karla Treviño RN) MEDICAL HISTORY Med Hx Diabetes: No (10/10/2016 16:48:Karla Treviño RN) Med Hx Hypertension: Yes (10/10/2016 16:48:Karla Treviño RN) Med Hx Heart Disease: No (10/10/2016 16:48:Karla Treviño RN) Med Hx Autoimmune Disorder: No (10/10/2016 16:48:Karla Treviño RN) Med Hx Kidney Disease/UTI: No (10/10/2016 16:48:Karla Treviño RN) Med Hx Neurologic/Epilepsy: No (10/10/2016 16:48:Karla Treviño RN) Med Hx Psychiatric Disorders: No (10/10/2016 16:48:Karla Treviño RN) Med Hx Hepatitis/Liver Disease: No (10/10/2016 16:48:Karla Treviño RN) Med Hx Varicosities/Phlebitis: No (10/10/2016 16:48:Karla Treviño RN) Med Hx Thyroid Dysfunction: No (10/10/2016 16:48:Karla Treviño RN) Med Hx Trauma/Violence: No (10/10/2016 16:48:Karla Treviño RN) Med Hx Blood Transfusion: No (10/10/2016 16:48:Karla Treviño RN) Med Hx Pulmonary (Asthma,TB): No (10/10/2016 16:48:Karla Treviño RN) Med Hx Breast: No (10/10/2016 16:48:Karla Treviño RN) Med Hx COURT USHER Surgery: No (10/10/2016 16:48:Karla Treviño RN) Med Hx Hospitalization/Surgery: Yes (10/10/2016 16:48:Karla Treviño RN) Med Hx Anesthetic Complications: No (10/10/2016 16:48:Karla Treviño RN) Med Hx Abnormal Pap Smear: No (10/10/2016 16:48:Karla Treviño RN) Other Medical Diseases: No (10/10/2016 16:48:Karla Treviño RN) Med Hx Significant Family Hx: No (10/10/2016 16:48:Karla Treviño RN) Details of Med/Surg Hx: x2, CHTN on labetalol, anemia, obesity, AMA, uterine fibroid on left side 5.6x4.95x5.1 as of april, tonsilectomy (10/10/2016 16:48:Karla Treviño RN) INFECTIOUS HISTORY Inf Hx Gonorrhea: No (10/10/2016 16:48:Karla Treviño RN) Inf Hx Chlamydia: No (10/10/2016 16:48:Karla Treviño RN) Inf Hx Syphilis: No (10/10/2016 16:48:Karla Treviño RN) Inf Hx HIV/AIDS: No (10/10/2016 16:48:Karla Treviño RN) Inf Hx Human Papilloma Virus: No (10/10/2016 16:48:Karla Treviño RN) Inf Hx Pt/Partner Genital Herpes: No (10/10/2016 16:48:Karla Treviño RN) Inf Hx Tuberculosis/Exposure: No (10/10/2016 16:48:Karla Treviño RN) Inf Hx Hepatitis B,C: No (10/10/2016 16:48:Karla Treviño RN) Inf Hx Rash or Viral Illness: No (10/10/2016 16:48:Karla Treviño RN) GENETIC HISTORY Gen Hx Age >=35 at [place]: Yes (10/10/2016 16:48:Karla Treviño RN) Gen Hx Thalassemia: No (10/10/2016 16:48:Karla Treviño RN) Gen Hx Congenital Heart Defect: No (10/10/2016 16:48:Karla Treviño RN) Gen Hx Neural Tube Defect: No (10/10/2016 16:48:Karla Treviño RN) Gen Hx Down's Syndrome: No (10/10/2016 16:48:Karla Treviño RN) Gen Hx Navi-Sachs: No (10/10/2016 16:48:Karla Treviño RN) Gen Hx Linda: No (10/10/2016 16:48:Karla Treviño RN) Gen Hx Familial Dysautonomia: No (10/10/2016 16:48:Karla Treviño RN) Gen Hx Sickle Cell Disease/Trait: No (10/10/2016 16:48:Karla Treviño RN) Gen Hx Hemophilia/Blood Disorder: No (10/10/2016 16:48:Karla Treviño RN) Gen Hx Muscular Dystrophy: No (10/10/2016 16:48:Karla Treviño RN) Gen Hx Cystic Fibrosis: No (10/10/2016 16:48:Karla Treviño RN) Gen Hx Huntingtons Chorea: No (10/10/2016 16:48:Karla Treviño RN) Gen Hx Mental Retardation/Autism: No (10/10/2016 16:48:Karla Treviño RN) Gen Hx Tested for Fragile X: No (10/10/2016 16:48:Karla Treviño RN) Gen Hx Other Inher/Chromosomal: No (10/10/2016 16:48:Karla Treviño RN) Gen Hx Maternal Metabolic DO: No (10/10/2016 16:48:Karla Treviño RN) Gen Hx Pt Father or FOB Defect: No (10/10/2016 16:48:Karla Treviño RN) Gen Hx Other Genetic History: No (10/10/2016 16:48:Karla Treviño RN) Gen Hx Drugs/Meds since LMP: No (10/10/2016 16:48:Karla Treviño RN) Gen Hx Medications: vitamins, Labetalol, Iron, Benadryl, Zantac, Tylenol (10/10/2016 16:48:Karla Treviño RN)
--- NOTE | 2016-11-25 06:00 | L&D Current Admission ---
Current Admit Datetime Report Generated by CPN: 11/25/2016 06:00 ADMISSION INFORMATION Current Admit Date/Time: 11/13/2016 09:33 (11/20/2016 09:33:KALEY Ludwig) Reason for Admission: Onset of Labor (11/20/2016 09:33:KALEY Ludwig) Chief Complaint: Contractions (11/20/2016 09:33:KALEY Ludwig) EGA per Dates: 37.6 (11/20/2016 09:33:QS system process) Method of Arrival: Wheelchair (11/20/2016 09:33:KALEY Ludwig) Admitted From: Dr. Mora (11/20/2016 09:33:KALEY Ludwig) Reason for Induction: Not Applicable (11/20/2016 09:33:KALEY Ludwig) Records Available: Yes (11/20/2016 09:33:KALEY Ludwig) General Admission Information: Reviewed (11/20/2016 09:33:KALEY Ludwig) General Admission Reviewed By: Katharina ROCHE (11/20/2016 09:33:KALEY Ludwig) BELONGINGS/ADVANCED DIRECTIVES Valuables/Personal Effects: None (11/20/2016 09:33:KALEY Ludwig) Disposition of Belongings: Kept with Patient (11/20/2016 09:33:KALEY Ludwig) Advance Direct for Healthcare: No, and Wants No Information (11/20/2016 09:33:KALEY Ludwig) Durable Power of Mercerizing Range Controller: No (11/20/2016 09:33:KALEY Ludwig) Living Will: No (11/20/2016 09:33:KALEY Ludwig) Organ Donor: Undecided (11/20/2016 09:33:KALEY Ludwig) Pt Rights Information Given: Yes (11/20/2016 09:33:KALEY Ludwig) Pt Understands Pt Rights: Yes (11/20/2016 09:33:KALEY Ludwig) LEARNING ASSESSMENT Knowledge Level: Understands L_D Process; Understands Care Activities; Understands Diagnosis (11/20/2016 09:33:KALEY Ludwig) Barriers to Learning: None (11/20/2016 09:33:KALEY Ludwig) Learning Readiness: Motivated (11/20/2016 09:33:KALEY Ludwig) Learns Best By: 1 to 1 Instruction; Reading; Videos; Group Discussion; Demonstration (11/20/2016 09:33:KALEY Ludwig) Learning Needs: Labor and Delivery Process (11/20/2016 09:33:KALEY Ludwig) DOMESTIC VIOLANCE SCREENING Dom Viol Threatened/Hurt: No (11/20/2016 09:33:KALEY Ludwig) Hx of Abuse/Neglect past 2yrs: No (11/20/2016 09:33:KALEY Ludwig) Feel Unsafe Going Home: No (11/20/2016 09:33:KALEY Ludwig) Addt'l Observ Indicating Abuse: No (11/20/2016 09:33:KALEY Ludwig) Reason Unable to Complete Screen: N/A, Screen Completed (11/20/2016 09:33:KALEY Ludwig) Considered Personal Harm/Suicide: No (11/20/2016 09:33:KALEY Ludwig) NUTRITIONAL/FUNCTIONAL SCREENING Problem with Appetite >5 Days: No (11/20/2016 09:33:KALEY Ludwig) Chew/Swallow Difficulties: No (11/20/2016 09:33:KALEY Ludwig) Inappropriate Wt Gain/Loss: No (11/20/2016 09:33:KALEY Ludwig) Presence Skin Breakdown/Ulcer: No (11/20/2016 09:33:KALEY Ludwig) Special Diet: No (11/20/2016 09:33:KALEY Ludwig) Pt Requests Art Professor Visit: No (11/20/2016 09:33:KALEY Ludwig) Hx of Any of the Following?: N/A (11/20/2016 09:33:KALEY Ludwig) New Diagnosis of: N/A (11/20/2016 09:33:KALEY Ludwig) Requires Assist w/Ambulation: No (11/20/2016 09:33:KALEY Ludwig) Uses Assist Device to Ambulate: No (11/20/2016 09:33:KALEY Ludwig) Pt Requires Help w/ADL's: Rachel (11/20/2016 09:33:KALEY Ludwig)
[2016-11-25] MEDS: FERROUS SULFATE 325 MG TABLET PO SCH (10:00)
[2016-11-25] MEDS: NIFEDIPINE 30 MG TAB.ER.24 PO SCH (10:00)
[2016-11-25] MEDS: PRENATAL VITAMIN W-O CA NO5/FE FUMARATE/FA CAPSULE PO SCH (10:00)
[2016-11-25] MEDS: DOCUSATE SODIUM 100 MG CAPSULE PO SCH (10:00)
[2016-11-25] MEDS: SENNOSIDES/DOCUSATE 8.6-50 MG 1 EACH TABLET PO SCH (10:03)
--- NOTE | 2016-11-25 11:21 | PDOC DISCHARGE SUMMARY ---
Final Diagnosis Discharge Date: 11/25/16 - Final Diagnosis (2) Pre-eclampsia affecting with pre-existing hypertension, delivered , current hospitalization Is this a current diagnosis for this admission?: Yes (3) Vaginal delivery Is this a current diagnosis for this admission?: Yes Discharge Data - Discharge Medication Home Medications: Labetalol HCl [Normodyne 200 mg Tablet] 200 mg PO BID 10/10/16 Pnv with Ca,No.72/Iron/FA [Pnv Plus Multivit Tab] 1 each PO DAILY 10/10 Diphenhydramine HCl [Benadryl 25 mg Capsule] 1 tab PO Q6 PRN 11/16/16 Ferrous Sulfate [Iron] 1 tab PO DAILY 11/16/16 Reason(s) for Admission: Onset of Labor Procedures: NST, Ultrasound Intrapartum Procedure(s): Spontaneous Vaginal Delivery Complication(s) Note: pt with severe pressures magnesium sulfate x 12-24 hours started on procardia 60 mg po qd instructions reviewed with pt and family - Data Baby 1 Female at 1 minute: 8 at 5 minutes: 9 Weight: 2830 kg Home with Mother: Yes Complications: No - Diagnosis Test Laboratory: Temp Pulse Resp BP Pulse Ox 98.0 F 79 17 138/84 H 100 11/25/16 09:27 11/25/16 09:27 11/25/16 09:27 11/25/16 09:27 11/25/16 09:27 11/20/16 11/20/16 11/21/16 09:40 10:50 08:38 RBC 4.28 3.93 Hgb 11.4 L 10.3 L Hct 34.1 L 31.5 L Urine Opiates Screen NEGATIVE 11/23/16 11/23/16 11/23/16 10:24 15:20 20:52 RBC 4.59 4.51 4.17 Hgb 12.0 11.9 L 11.0 L Hct 36.9 36.2 33.2 L Urine Opiates Screen 11/24/16 11/24/16 11/24/16 03:10 09:23 20:05 RBC 4.26 4.20 4.40 Hgb 11.2 L 10.9 L 11.5 L Hct 34.0 L 33.6 L 35.4 L Urine Opiates Screen - Discharge information/Instructions Discharge Activity: Activity As Tolerated, No Lifting Over 10 Pounds, Pelvic Rest, No tub bath Discharge Diet: Regular Disposition: AGAINST MEDICAL ADVICE Follow up with: [facility] in: 1 - follow up in 1 week for bp check
[2016-11-25 11:41] VITALS: BP 138/84
== END 2016-11-25 12:38 | disposition home or self-care (01) | DRG 775 ==
LOC: LC 09:30 → LR 10:07 → 2S 14:21 → LR 11-23 13:20 → 2S 11-24 17:48
PROVIDERS: ADMIT Specialist; ATTEND Specialist
PROC: 10E0XZZ Delivery of Products of Conception, External Approach (ICD-10-PCS; principal; 2016-11-20)
PROC: 4A1HXCZ Monitoring of Products of Conception, Cardiac Rate, External Approach (ICD-10-PCS; 2016-11-20)
DX: O11.4 Pre-existing hypertension with pre-eclampsia, complicating childbirth (principal); O69.81X0 Labor and delivery complicated by cord around neck, without compression, not applicable or unspecified; O32.6XX0 Maternal care for compound presentation, not applicable or unspecified; O71.82 Other specified trauma to perineum and vulva; Z3A.38 38 weeks gestation of pregnancy; Z37.0 Single live birth
CPT/HCPCS: 36415; 80053; 80307; 81001; 81005; 83615; 84550; 85025; 85027; 86592; 86850; 86900; 86901; J2405; J2540; J2590; J3010; J3475; J3490

== ENCOUNTER → 2018-09-20 | Outpatient (CLI) | payer BC ==
--- NOTE | 2018-09-20 13:45 | RADIOLOGY REPORT (SQ) ---
EXAM DESCRIPTION: CT ABD/PELVIS WITH IV ORAL COMPLETED DATE/TIME: 09/20/2018 1:23 pm REASON FOR STUDY: D27.9 BENIGN NEOPLASM OF UNSPECIFIED OVARY D27.9 BENIGN NEOPLASM OF UNSPECIFIED O VARY COMPARISON: CT abdomen pelvis 04/23/2015 TECHNIQUE: CT scan of the abdomen and pelvis performed using helical scanning technique with dynamic intravenous contrast injection. Patient drank oral contrast. Images reviewed with lung, soft tissue , and bone windows. Reconstructed coronal and sagittal MPR images reviewed. Delayed images for evalua tion of the urinary system also acquired. All images stored on PACS. All CT scanners at this facility use dose modulation, iterative reconstruction, and/or weight based d osing when appropriate to reduce radiation dose to as low as reasonably achievable (ALARA). [facility]: Dose Right [facility]: CareDose [facility]: Dose Right [facility]: Teradose 4D [facility]: Taifatech CONTRAST TYPE AND DOSE: contrast/concentration: Isovue 350.00 mg/ml; Total Contrast Delivered: 100.0 ml; Total Saline Delivered: 72.0 ml RENAL FUNCTION: Creatinine 0.7 RADIATION DOSE: CT Rad equipment meets quality standard of care and radiation dose reduction techniq ues were employed. CTDIvol: 10.5 - 11.9 mGy. DLP: 1065 mGy-cm.. LIMITATIONS: None. FINDINGS: LOWER CHEST: No significant findings. No nodules or infiltrates. LIVER: Normal size. No masses. No dilated ducts. SPLEEN: Normal size. No focal lesions. PANCREAS: No masses. No significant calcifications. No adjacent inflammation or peripancreatic fluid collections. Pancreatic duct not dilated. GALLBLADDER: No identified stones by CT criteria. No inflammatory changes to suggest cholecystitis. ADRENAL GLANDS: No significant masses or asymmetry. RIGHT KIDNEY AND URETER: No solid masses. No significant calcifications. No hydronephrosis or hyd roureter. LEFT KIDNEY AND URETER: No solid masses. No significant calcifications. No hydronephrosis or hydr oureter. AORTA AND VESSELS: No aneurysm. No dissection. Renal arteries, SMA, celiac without stenosis. RETROPERITONEUM: No retroperitoneal adenopathy, hemorrhage or masses. BOWEL AND PERITONEAL CAVITY: No masses or inflammatory changes. No free fluid or peritoneal masses. Patient drank oral contrast. No CT evidence of bowel obstruction or free intraperitoneal air or free fluid. No colonic diverticulosis. APPENDIX: Normal. PELVIS: Normal size uterus and right ovary. IUD in the endometrial canal. Peripherally calcified le ft ovarian cystic lesion, 3.5 cm craniocaudad by 4 cm AP x 3.5 cm transverse. No free fluid. Normal bladder. ABDOMINAL WALL: No masses. No hernias. BONES: No significant or acute findings. OTHER: No other significant finding. IMPRESSION: No acute findings. Peripherally calcified left ovarian cystic mass. IUD in good positioning. TECHNICAL DOCUMENTATION: JOB ID: [id number] Quality ID # [id number]: Final reports with documentation of one or more dose reduction techniques (e.g., Au tomated exposure control, adjustment of the mA and/or kV according to patient size, use of iterative reconstruction technique) 2010 [employer]- All Rights Reserved Reading location - IP/workstation name: [email or web address]
== END ==
LOC: RAD 12:54
PROVIDERS: ATTEND Student in an Organized Health Care Education/Training Program
DX: D25.1 Intramural leiomyoma of uterus (principal)
CPT/HCPCS: 74177; 82565

== ENCOUNTER → 2018-09-29 | Outpatient (CLI) | payer BC ==
[2018-09-29 18:19] LABS: CARCINOEMBRYONIC ANTIGEN 1.9 ng/mL (<3.0)
[2018-10-01 14:50] LABS: CANCER ANTIGEN (CA) 125 16.7 U/mL (0.0-38.1)
== END ==
LOC: OD 16:42
PROVIDERS: ATTEND Student in an Organized Health Care Education/Training Program
DX: N83.202 Unspecified ovarian cyst, left side (principal)
CPT/HCPCS: 36415; 82378; 83615; 86301; 86304